=== PATIENT | male | born 1930 ===

== ENCOUNTER 2018-01-29 14:07 | Observation (INO) ==
[2018-01-29] MEDS ORDERED: Naloxone 0.4 MG/ML INJ IVP PRN (18:48)
--- NOTE | 2018-01-29 19:03 | Internal Med History&Physical ---
Date of Encounter: 01/29/18 Time of Encounter: 19:30 Internal Medicine - H&P: HPI Chief complaint: Generalized weakness Admitted From: Home Plans for Post Hospital Care: Home History of present illness: Mr. Loja is a 88 year old male with multiple comorbidities who presented to [facility] with generalized weakness and abdominal pain. Patient is being seen by oncology and he had liver biopsy done 3 days ago, and is been hurting the biopsy site since then. Patient is getting very weak and he is not able to get up. According to his he was admitted to confused this morning. Initial workup CT head was negative. Patient has been having nausea and vomiting for the last couple days. He denied any chest pain no abdominal pain no changes in bowel movement. No headache no blurry vision or double vision. Patient being followed up by oncology for possible metastasis of unknown primary. Past Med Surg Social Fam HX - Past Medical History Medical history: non-contributory, GERD, hyperlipidemia, hypertension Additional medical history: gout Psychiatric history: no psych history - Past Surgical History Surgical History: non-contributory - Social History Smoking Status: Never smoker Smokeless Tobacco Status: No Alcohol use: none Drug use: none - Additional Family History Additional family history: Family history reviewed. No history of cancer in the family Internal Medicine - H&P: Meds Allopurinol [Zyloprim 100 MG] 100 mg PO DAILY 01/12/18 [History] Difluprednate [Durezol] 5 ml OP DAILY 01/12/18 [History] Ergocalciferol (VITAMIN D2) [Vitamin D] 400 unit PO DAILY 01/12/18 [History] Finasteride [Proscar] 5 mg PO DAILY 01/12/18 [History] Lisinopril [Zestril] 20 mg PO DAILY 01/12/18 [History] Metoclopramide [Reglan] 5 mg PO TID 01/12/18 [History] Pantoprazole Sodium [Protonix] 40 mg PO BID 01/12/18 [History] Pravastatin Sodium [Pravachol] 80 mg PO DAILY 01/12/18 [History] Spironolactone [Aldactone] 25 mg PO DAILY 01/12/18 [History] Tamsulosin HCl [Flomax] 0.4 mg PO DAILY 01/12/18 [History] Vitamin B Complex [B Complex] 1 each PO DAILY 01/12/18 [History] hydroCHLOROthiazide [Hydrochlorothiazide] 50 mg PO DAILY 01/12/18 [History] 3 Allergy/AdvReac Type Severity Reaction Status Date / Time No Known Allergies Allergy Verified 01/12/18 11:11 All Systems PM: A 10-system review of systems was performed and is negative for pertinent findings except as documented above in the HPI. - Constitutional Vitals: Temp Pulse Resp BP Pulse Ox 99.2 F 72 16 154/80 99 01/29/18 18:20 01/29/18 18:20 01/29/18 18:20 01/29/18 18:20 01/29/18 18:20 - Head Head exam: Present: atraumatic, normocephalic - Eye Eye exam: Present: PERRL, conjuntiva pink, sclera anicteric Pupils: Present: PERRL - Neck Neck exam general surgery: Present: supple, trachea midline. Absent: lymphadenopathy - Respiratory Respiratory exam: Present: CTAB. Absent: accessory muscle use, rales, rhonchi, wheezes - Cardiovascular Cardiovascular exam: Present: RRR, +S1, +S2. Absent: diastolic murmur, gallop, rubs, systolic murmur - GI/Abdominal Additional comments: Mild right sided tenderness - Extremities Exam Extremities exam: Present: warm, radial pulses palpable and symmetrical. Absent : calf tenderness, cyanotic, pedal edema - Neurological Exam Neurological exam: Present: CN II-XII intact, oriented X3, no focal deficits. Absent: pronater drift, facial droop, speech deficit - Assessment and plan (1) Acute kidney injury Current Visit: Yes Status: Acute Assessment and plan: Start IV hydration with normal saline Hold lisinopril and diuretics. Avoid nephrotoxic agents Monitor kidney function tests Replace electrolytes as needed Patient had a CT abdomen done in outside facility. Showed liver lesion that was biopsied 3 days ago (2) Dehydration Current Visit: Yes Status: Acute Assessment and plan: Plan as above (3) Liver metastases Current Visit: Yes Status: Acute Assessment and plan: Status post liver biopsy a few days ago Oncology will be consulted to be called in the morning. Family requested to know the results of the biopsy. (4) Confusion Current Visit: Yes Status: Acute Assessment and plan: Currently patient is awake alert oriented 3 Reported very short period of confusion by his earlier this morning. Patient denied being confused CT head negative Frequent neuro checks (5) Lactic acidosis Current Visit: Yes Status: Acute Assessment and plan: Resolved Continue IV hydration No signs of infection Blood cultures already sent (6) Generalized weakness Current Visit: Yes Status: Acute Assessment and plan: Physical therapy and occupational therapy (7) On esomeprazole prophylaxis Current Visit: Yes Status: Acute (8) DVT prophylaxis Current Visit: Yes Status: Acute Assessment and plan: with Lovenox SQ - Time Spent With Patient Total time spent is greater than 50% in coordination of care (as documented) at patient's floor/unit and/or counseling patient:
[2018-01-29 19:34] LABS: Hemoglobin 7.4 g/dL (12.9-16.9); Mean Corpuscular HGB Conc 33.6 g/dL (31.6-35.5); Mean Corpuscular Hemoglobin 33.8 pg (28.0-33.3); Mean Corpuscular Volume 100.5 fL (83.0-100.0); Mean Platelet Volume 10.5 fL (9.4-12.4); Monocytes # 0.9 K/mcL (0.0-1.3); Platelet Count 107 K/mcL (140-400); Red Blood Count 2.19 M/mcL (4.19-5.50); Red Cell Distribution Width 16.2 % (11.5-14.5)
[2018-01-29 19:44] LABS: Albumin 3.4 g/dL (3.5-5.7); Albumin/Globulin Ratio 1.1 (1.1-2.2); Bilirubin,Total 2.9 mg/dL (0.3-1.0); Calcium 9.6 mg/dL (8.6-10.3); Magnesium 1.7 mg/dL (1.6-2.6); Phosphorous 3.4 mg/dL (2.7-4.5); Potassium 4.3 mEq/L (3.5-5.1); Total Protein 6.4 g/dL (6.4-8.9)
[2018-01-29] MEDS: 0.9 % Sodium Chloride 1,000 ML IVC SCH (19:51)
[2018-01-29 20:31] LABS: Lymphocytes # 1.1 K/mcL (0.6-4.6); Neutrophils # 7.1 K/mcL (1.6-8.9)
[2018-01-29 20:32] LABS: Platelet Estimate Slight Decrease (Normal)
[2018-01-30 04:29] LABS: Eosinophils # 0.2 K/mcL (0.0-0.6); Hematocrit 20.9 % (37.5-50.1); Hemoglobin 6.9 g/dL (12.9-16.9); Mean Corpuscular Hemoglobin 32.2 pg (28.0-33.3); Mean Corpuscular Volume 97.7 fL (83.0-100.0); Mean Platelet Volume 10.5 fL (9.4-12.4); Platelet Count 109 K/mcL (140-400); Red Blood Count 2.14 M/mcL (4.19-5.50)
[2018-01-30 04:58] LABS: Lymphocytes # 1.5 K/mcL (0.6-4.6); Monocytes # 0.4 K/mcL (0.0-1.3); Neutrophils # 7.3 K/mcL (1.6-8.9)
[2018-01-30 04:59] LABS: Hypochromasia Present (Not Present); Platelet Estimate Slight Decrease (Normal)
[2018-01-30] MEDS: 0.9 % Sodium Chloride 1,000 ML IVC SCH (05:32)
[2018-01-30 05:50] LABS: Albumin 3.4 g/dL (3.5-5.7); Albumin/Globulin Ratio 1.2 (1.1-2.2); Bilirubin,Total 3.2 mg/dL (0.3-1.0); Calcium 9.5 mg/dL (8.6-10.3); Globulin 2.9 g/dL (2.4-3.5); Magnesium 1.6 mg/dL (1.6-2.6); Phosphorous 3.4 mg/dL (2.7-4.5); Potassium 4.2 mEq/L (3.5-5.1); Total Protein 6.3 g/dL (6.4-8.9)
[2018-01-30] MEDS ORDERED: *HR* Enoxaparin 30 MG/0.3 ML SYRINGE SQ SCH (06:00)
[2018-01-30] MEDS: Finasteride 5 MG TABLET PO SCH (09:05)
[2018-01-30] MEDS: Vitamin B Complex/Vit C/Vit E 1 EACH TABLET PO SCH (09:05)
[2018-01-30] MEDS: DIFLUPREDNATE OP SCH (09:05)
[2018-01-30] MEDS: Cholecalciferol (D-3) 1,000 UNIT TABLET PO SCH (09:05)
[2018-01-30] MEDS ORDERED: 0.9 % Sodium Chloride 250 ML ONE ×2 (11:15→14:43)
--- NOTE | 2018-01-30 11:35 | Internal Med Progress Note ---
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 Baseline creatinine 1.7. Presented creatinine 2.59. Kidney function slowly improving with IV fluid hydration. Continue the same. Obtain renal ultrasound. Avoid Nephrotoxins. Consider renal evaluation if not improving. (5) Confusion Current Visit: Yes Status: Resolved Assessment and plan: resolved Patient is AAOX3 on evaluation, able to participate in conversation, head CT unremarkable (6) DVT prophylaxis Current Visit: Yes Status: Acute Assessment and plan: SCds-acute anemia of unknown source (7) Generalized weakness Current Visit: Yes Status: Acute Assessment and plan: PTOT eval when stable (8) Lactic acidosis Current Visit: Yes Status: Acute Assessment and plan: Possibly due to decreased clearance by the liver due to liver disease Continue to monitor Lactate 1.7 7/2 (9) Liver metastases Current Visit: Yes Status: Acute Assessment and plan: Oncology eval requested-call made (10) On esomeprazole prophylaxis Current Visit: Yes Status: Acute Assessment and plan: continue same - Time Spent With Patient Total time spent is greater than 50% in coordination of care (as documented) at patient's floor/unit and/or counseling patient: - Subjective Interval history: Patient is seen and examined with his family members at the bedside. The patient is awake, alert and oriented, he denies new complaints, still complains of generalized weakness and right upper quadrant pain. He denies nausea, denies vomiting, denies hematemesis, no hematemesis E, stool is said to be brown. No hematuria. - Constitutional Vitals: Temp Pulse Resp BP Pulse Ox 98.6 F 60 16 148/88 97 01/30/18 07:59 01/30/18 07:59 01/30/18 07:59 01/30/18 07:59 01/30/18 07:59 General appearance: Present: A&O X 3, no acute distress - Head Head exam: Present: atraumatic - Eye Additional comments: pale conjunctiva - ENT ENT exam: Present: mucous membranes dry - Neck Neck exam general surgery: Present: normal inspection - Respiratory Respiratory exam: Present: CTAB - Cardiovascular Cardiovascular exam: Present: RRR, +S1, +S2 - GI/Abdominal GI/Abdominal exam: Present: normal bowel sounds, soft, no peritoneal signs. Absent: tenderness - Extremities Exam Extremities exam: Present: warm, radial pulses palpable and symmetrical. Absent : calf tenderness, cyanotic, pedal edema - Neurological Exam Neurological exam: Present: alert, CN II-XII intact, oriented X3, no focal deficits. Absent: pronater drift, facial droop, speech deficit - Skin Skin exam: Present: dry, intact Internal Medicine: Result - Labs CBC & Chem 7: 01/30/18 03:44 01/30/18 03:44 Labs: Short CBC 01/29/18 01/29/18 01/29/18 Range/Units 19:14 19:14 19:14 WBC 9.1 (4.3-11.1) K/mcL RBC 2.19 L (4.19-5.50) M/mcL Hgb 7.4 L (12.9-16.9) g/dL Hct 22.0 L (37.5-50.1) % MCV 100.5 H (83.0-100.0) fL MCH 33.8 H (28.0-33.3) pg MCHC 33.6 (31.6-35.5) g/dL RDW 16.2 H (11.5-14.5) % Plt Count 107 L (140-400) K/mcL MPV 10.5 (9.4-12.4) fL Seg Neutrophils % 78.0 % Lymphocytes % 12.0 % Monocytes % 10.0 % Eosinophils % % Neutrophils # 7.1 (1.6-8.9) K/mcL Lymphocytes # 1.1 (0.6-4.6) K/mcL Monocytes # 0.9 (0.0-1.3) K/mcL Eosinophils # (0.0-0.6) K/mcL Platelet Estimate Slight Decrease L (Normal) Hypochromasia (Not Present) Sodium 135 L (136-145) mEq/L Potassium 4.3 (3.5-5.1) mEq/L Chloride 103 (98-107) mEq/L Carbon Dioxide 25 (23-29) mEq/L BUN 44 H (8-23) mg/dL Creatinine 2.59 H (0.70-1.30) mg/dL Est GFR ( Amer) 29 L (> 60) Est GFR (Non-Af Amer) 24 L (> 60) BUN/Creatinine Ratio 17 (6-26) Glucose 143 H (70-105) mg/dL Calculated Osmolality 294 (280-300) Lactic Acid 1.7 (0.5-2.2) mmol/L Calcium 9.6 (8.6-10.3) mg/dL Phosphorus 3.4 (2.7-4.5) mg/dL Magnesium 1.7 (1.6-2.6) mg/dL Total Bilirubin 2.9 H (0.3-1.0) mg/dL AST 71 H (13-39) Units/L ALT 47 (7-52) Units/L Alkaline Phosphatase 277 H (34-104) Units/L Serum Total Protein 6.4 (6.4-8.9) g/dL Albumin 3.4 L (3.5-5.7) g/dL Globulin 3.0 (2.4-3.5) g/dL Albumin/Globulin Ratio 1.1 (1.1-2.2) 01/30/18 01/30/18 Range/Units 03:44 03:44 WBC 9.4 (4.3-11.1) K/mcL RBC 2.14 L (4.19-5.50) M/mcL Hgb 6.9 L (12.9-16.9) g/dL Hct 20.9 L (37.5-50.1) % MCV 97.7 (83.0-100.0) fL MCH 32.2 (28.0-33.3) pg MCHC 33.0 (31.6-35.5) g/dL RDW 16.0 H (11.5-14.5) % Plt Count 109 L (140-400) K/mcL MPV 10.5 (9.4-12.4) fL Seg Neutrophils % 78.0 % Lymphocytes % 16.0 % Monocytes % 4.0 % Eosinophils % 2.0 % Neutrophils # 7.3 (1.6-8.9) K/mcL Lymphocytes # 1.5 (0.6-4.6) K/mcL Monocytes # 0.4 (0.0-1.3) K/mcL Eosinophils # 0.2 (0.0-0.6) K/mcL Platelet Estimate Slight Decrease L (Normal) Hypochromasia Present A (Not Present) Sodium 137 (136-145) mEq/L Potassium 4.2 (3.5-5.1) mEq/L Chloride 105 (98-107) mEq/L Carbon Dioxide 22 L (23-29) mEq/L BUN 40 H (8-23) mg/dL Creatinine 2.35 H (0.70-1.30) mg/dL Est GFR ( Amer) 32 L (> 60) Est GFR (Non-Af Amer) 26 L (> 60) BUN/Creatinine Ratio 17 (6-26) Glucose 101 (70-105) mg/dL Calculated Osmolality 294 (280-300) Lactic Acid (0.5-2.2) mmol/L Calcium 9.5 (8.6-10.3) mg/dL Phosphorus 3.4 (2.7-4.5) mg/dL Magnesium 1.6 (1.6-2.6) mg/dL Total Bilirubin 3.2 H (0.3-1.0) mg/dL AST 69 H (13-39) Units/L ALT 46 (7-52) Units/L Alkaline Phosphatase 248 H (34-104) Units/L Serum Total Protein 6.3 L (6.4-8.9) g/dL Albumin 3.4 L (3.5-5.7) g/dL Globulin 2.9 (2.4-3.5) g/dL Albumin/Globulin Ratio 1.2 (1.1-2.2) BMP 01/29/18 01/30/18 19:14 03:44 Sodium 135 L 137 Potassium 4.3 4.2 Chloride 103 105 Carbon Dioxide 25 22 L BUN 44 H 40 H Creatinine 2.59 H 2.35 H Glucose 143 H 101 Calcium 9.6 9.5 Liver Function 01/29/18 01/30/18 Range/Units 19:14 03:44 Total Bilirubin 2.9 H 3.2 H (0.3-1.0) mg/dL AST 71 H 69 H (13-39) Units/L ALT 47 46 (7-52) Units/L Alkaline Phosphatase 277 H 248 H (34-104) Units/L Albumin 3.4 L 3.4 L (3.5-5.7) g/dL Consult Discharge Plan - Plan Referrals: Rico Reno MD [Family Provider] -
--- NOTE | 2018-01-30 13:58 | Palliative - Consult Note ---
<Deanna Rogers - Last Filed: 01/30/18 17:10> Date of Encounter: 01/30/18 Time of Encounter: 13:56 - Assessment and Plan (1) Goals of care, counseling/discussion Current Visit: Yes Status: Acute Assessment and plan: Presented to outside hospital for c/o generalized weakness and abdominal pain Recent results of liver biopsy (01/23/18) show malignant cells PET scan (01/25/18) results show: - Metabolically active mass in tail of pancreas enlarged since prior CT imaging , concerning for primary pancreatic cancer - Progression of liver metastases since prior CT scan - Metabolically active lymph nodes of rishi hepatis, likely metastatic - Right 4th rib and T12 lesions, likely represent early skeletal metastatses Plan: 1. At this time, pt and his family are waiting to speak with oncology and learn about possible treatment options 2. Regarding CODE STATUS, pt is considering his options and at this time remains FULL CODE 3. Family will bring medical POA paperwork to hospital tomorrow so a copy can be scanned into pt's medical record 4. Will visit pt and family tomorrow to discuss goals of care and CODE STATUS 5. 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 Current Visit: Yes Status: Acute Assessment and plan: Recent results of liver biopsy (01/23/18) show malignant cells PET scan (01/25/18) results show: - Metabolically active mass in tail of pancreas enlarged since prior CT imaging , concerning for primary pancreatic cancer - Progression of liver metastases since prior CT scan (3) Nausea Current Visit: Yes Status: Acute Assessment and plan: Controlled at this time (4) Bone metastases Current Visit: Yes Status: Acute Assessment and plan: Right 4th rib and T12 lesions, likely patient services representative of early skeletal metastases, noted on PET scan. Palliative-CN HPI - Data of Consult Patient: new to practice Consult date: 01/30/18 Requesting Physician: Que Chapa MD Primary Care Provider: PCP NONE Family Provider: Rico Reno MD - Consult Narrative Palliative Care/Comfort Measures: Palliative care Reason for consult: Goals of care History of present illness: Mr. Loja is a 88 year-old male who presented to [facility] with generalized weakness and abdominal pain. He is being seen by oncology and had a liver biopsy several days ago that was positive for malignant cells. PET scan done 01/25/18 further suggests possibility of metastasis of unknown primary, suspected to be pancreatic. Since that time, the patient has become very weak and experiencing nausea and vomiting. On admission, the patient's fiance reported he had been confused that morning--his head CT was reportedly negative. He was admitted to the hospitalist service for further evaluation and management. Palliative care consulted to discuss goals of care and code status. CC: Que Chapa MD Past Med Surg Social Fam HX - Past Medical History Medical history: non-contributory, GERD, hyperlipidemia, hypertension Additional medical history: gout Psychiatric history: no psych history - Past Surgical History Surgical History: non-contributory - Social History Smoking Status: Never smoker Smokeless Tobacco Status: No Alcohol use: none Drug use: none - Family History Mother Living Status: Age at : 69 Cause of : Stroke Hx Family Cardiac Disorders: Yes Hx Family Respiratory Disorders: No Hx Family Cancer: No Hx Family GI Disorders: No Hx Family Genitourinary Disorders: No Hx Family Endocrine Disorder: No Hx Family Musculoskeletal Disorders: No Hx Family Neuromuscular Disorders: No Hx Family Neurologic Disorders: Yes Hx Family HEENT Disorders: No Hx Family Autoimmune Disorders: No Hx Family Reproductive Disorders: No Hx Family Psychosocial Disorders: No Hx Family Medical Disorders: No Father Living Status: Age at : 70 Cause of : unknown Hx Family Cardiac Disorders: Yes Hx Family Respiratory Disorders: No Hx Family Cancer: No Hx Family GI Disorders: No Hx Family Genitourinary Disorders: No Hx Family Endocrine Disorder: No Hx Family Musculoskeletal Disorders: No Hx Family Neuromuscular Disorders: No Hx Family Neurologic Disorders: No Hx Family HEENT Disorders: No Hx Family Autoimmune Disorders: No Hx Family Reproductive Disorders: No Hx Family Psychosocial Disorders: No Hx Family Medical Disorders: No Medications and Allergies Allopurinol [Zyloprim 100 MG] 100 mg PO DAILY 01/12/18 [History] Difluprednate [Durezol] 5 ml OP DAILY 01/12/18 [History] Ergocalciferol (VITAMIN D2) [Vitamin D] 400 unit PO DAILY 01/12/18 [History] Finasteride [Proscar] 5 mg PO DAILY 01/12/18 [History] Lisinopril [Zestril] 20 mg PO DAILY 01/12/18 [History] Metoclopramide [Reglan] 5 mg PO TID 01/12/18 [History] Pantoprazole Sodium [Protonix] 40 mg PO BID 01/12/18 [History] Pravastatin Sodium [Pravachol] 80 mg PO DAILY 01/12/18 [History] Spironolactone [Aldactone] 25 mg PO DAILY 01/12/18 [History] Tamsulosin HCl [Flomax] 0.4 mg PO DAILY 01/12/18 [History] Vitamin B Complex [B Complex] 1 each PO DAILY 01/12/18 [History] hydroCHLOROthiazide [Hydrochlorothiazide] 50 mg PO DAILY 01/12/18 [History] 3 Allergy/AdvReac Type Severity Reaction Status Date / Time No Known Allergies Allergy Verified 01/12/18 11:11 - Gastrointestinal Gastrointestinal: abdominal pain (slight), constipation, no diarrhea, no nausea , no vomiting - Musculoskeletal Additional comments: no lower extremity edema Palliative Care-Exam - Constitutional Vitals: Temp Pulse Resp BP Pulse Ox 98.4 F 68 14 156/85 97 01/30/18 11:56 01/30/18 11:56 01/30/18 11:56 01/30/18 11:56 01/30/18 11:56 General appearance: Present: average body habitus, cooperative, no acute distress - Head Head Exam: Present: atraumatic, normal inspection, normocephalic - Respiratory Respiratory exam: Present: CTAB. Absent: rales, respiratory distress, wheezes - Cardiovascular Cardiovascular exam: Present: RRR, +S1, +S2 - GI/Abdominal Exam GI/Abdominal exam: Present: normal bowel sounds, soft, tenderness (central abdomen). Absent: rebound, rigid - Extremities Exam Extremities exam: Present: normal inspection. Absent: pedal edema, tenderness - Neurological Exam Neurological exam: Present: alert, oriented X3. Absent: no focal deficits, facial droop, speech deficit - Psychiatric Psychiatric exam: Present: normal affect, normal mood - Skin Skin exam: Present: dry, intact, warm Internal Medicine - CN: Reslt - Labs CBC & Chem 7: 01/30/18 03:44 01/30/18 03:44 Labs: Short CBC 01/29/18 01/30/18 Range/Units 19:14 03:44 WBC 9.1 9.4 (4.3-11.1) K/mcL Hgb 7.4 L 6.9 L (12.9-16.9) g/dL Hct 22.0 L 20.9 L (37.5-50.1) % Plt Count 107 L 109 L (140-400) K/mcL Neutrophils # 7.1 7.3 (1.6-8.9) K/mcL BMP 01/29/18 01/30/18 19:14 03:44 Sodium 135 L 137 Potassium 4.3 4.2 Chloride 103 105 Carbon Dioxide 25 22 L BUN 44 H 40 H Creatinine 2.59 H 2.35 H Glucose 143 H 101 Calcium 9.6 9.5 Liver Function 01/29/18 01/30/18 Range/Units 19:14 03:44 Total Bilirubin 2.9 H 3.2 H (0.3-1.0) mg/dL AST 71 H 69 H (13-39) Units/L ALT 47 46 (7-52) Units/L Alkaline Phosphatase 277 H 248 H (34-104) Units/L Albumin 3.4 L 3.4 L (3.5-5.7) g/dL Consult Discharge Plan - Plan Referrals: Rico Reno MD [Family Provider] - Palliative Quality Palliative Quality: Screen for Code Status: Yes, Screen for Goals of Care: Yes, Screen for Pain: Yes, Screen for Nausea/Vomitting: Yes Code Status: 01/29/18 18:48 Resuscitation Status: Active [RES] Routine Comment: Resuscitation Status: Full Code <DanielGio Scott - Last Filed: 01/30/18 17:32> Date of Encounter: 01/30/18 Palliative-CN HPI - Data of Consult Requesting Physician: Que Chapa MD Primary Care Provider: PCP NONE Family Provider: Rico Reno MD - Consult Narrative History of present illness: Mr. Loja is a 88 year old male CC: Que Chapa MD Palliative Care-Exam - Constitutional Vitals: Temp Pulse Resp BP Pulse Ox 98.2 F 69 14 159/83 97 01/30/18 15:48 01/30/18 15:48 01/30/18 15:48 01/30/18 15:48 01/30/18 15:48 Internal Medicine - CN: Reslt - Labs CBC & Chem 7: 01/30/18 03:44 01/30/18 03:44 Labs: Short CBC 07/01/18 07/02/18 Range/Units 19:14 03:44 WBC 9.1 9.4 (4.3-11.1) K/mcL Hgb 7.4 L 6.9 L (12.9-16.9) g/dL Hct 22.0 L 20.9 L (37.5-50.1) % Plt Count 107 L 109 L (140-400) K/mcL Neutrophils # 7.1 7.3 (1.6-8.9) K/mcL BMP 01/29/18 01/30/18 19:14 03:44 Sodium 135 L 137 Potassium 4.3 4.2 Chloride 103 105 Carbon Dioxide 25 22 L BUN 44 H 40 H Creatinine 2.59 H 2.35 H Glucose 143 H 101 Calcium 9.6 9.5 Liver Function 01/29/18 01/30/18 Range/Units 19:14 03:44 Total Bilirubin 2.9 H 3.2 H (0.3-1.0) mg/dL AST 71 H 69 H (13-39) Units/L ALT 47 46 (7-52) Units/L Alkaline Phosphatase 277 H 248 H (34-104) Units/L Albumin 3.4 L 3.4 L (3.5-5.7) g/dL - Attending Attestation I examined this patient and my medical decision-making was reviewed with the Resident Physician. I agree with the documented findings, disposition and treatment plan as described except to the extent set forth below. Palliative Quality Code Status: 01/29/18 18:48 Resuscitation Status: Active [RES] Routine Comment: Resuscitation Status: Full Code
--- NOTE | 2018-01-30 17:00 | Event Note ---
Date of Encounter: 01/30/18 Time of Encounter: 17:00 Full consult note to follow. Imaging and bx findings consistent with metastatic malignancy, likely pancreatic primary. Biopsy and PET scan findings were reviewed with patient and family. Hospice palliative care was discussed with patient and patient and family are agreeable. His case was also reviewed last wk in MDT conference. Palliative care has evaluated patient. Family awaits to get their input on in- patient vs outpatient/home hospice services.
[2018-01-30 20:38] LABS: Eosinophils # 0.3 K/mcL (0.0-0.6); Eosinophils % 1.9 %; Lymphocytes % 7.5 %; Mean Corpuscular HGB Conc 33.7 g/dL (31.6-35.5); Mean Corpuscular Hemoglobin 32.4 pg (28.0-33.3); Mean Corpuscular Volume 96.2 fL (83.0-100.0); Mean Platelet Volume 10.2 fL (9.4-12.4); Monocytes # 1.2 K/mcL (0.0-1.3); Monocytes % 8.8 %; Neutrophils # 10.8 K/mcL (1.6-8.9); Platelet Count 126 K/mcL (140-400); Red Blood Count 3.12 M/mcL (4.19-5.50); Red Cell Distribution Width 17.2 % (11.5-14.5); Segmented Neutrophils % 80.8 %
[2018-01-30 20:46] LABS: INR 1.3; Prothrombin Time 14.4 Seconds (9.4-12.1)
[2018-01-30 21:09] LABS: Hemoglobin 10.1 g/dL (12.9-16.9)
[2018-01-30 21:12] LABS: Reactive Lymphocytes Present (Not Present); Toxic Granulation Present (Not Present)
[2018-01-31] MEDS: 0.9 % Sodium Chloride 1,000 ML IVC SCH ×2 (03:02→17:19)
[2018-01-31 05:22] LABS: Hematocrit 25.1 % (37.5-50.1); Mean Corpuscular HGB Conc 33.9 g/dL (31.6-35.5); Mean Corpuscular Hemoglobin 31.8 pg (28.0-33.3); Mean Platelet Volume 10.4 fL (9.4-12.4); Platelet Count 113 K/mcL (140-400); Red Blood Count 2.67 M/mcL (4.19-5.50); Red Cell Distribution Width 17.4 % (11.5-14.5)
[2018-01-31 05:28] LABS: INR 1.4; Prothrombin Time 15.6 Seconds (9.4-12.1)
[2018-01-31 05:40] LABS: Albumin 3.4 g/dL (3.5-5.7); Albumin/Globulin Ratio 1.3 (1.1-2.2); Bilirubin,Direct 2.1 mg/dL (0.0-0.2); Bilirubin,Indirect 2.2 mg/dL (0.0-1.2); Bilirubin,Total 4.3 mg/dL (0.3-1.0); Globulin 2.7 g/dL (2.4-3.5); Total Protein 6.1 g/dL (6.4-8.9)
[2018-01-31 05:41] LABS: Calcium 9.5 mg/dL (8.6-10.3)
[2018-01-31 05:46] LABS: Hemoglobin 8.5 g/dL (12.9-16.9)
[2018-01-31 05:57] LABS: Eosinophils # 0.1 K/mcL (0.0-0.6); Lymphocytes # 0.7 K/mcL (0.6-4.6); Monocytes # 0.6 K/mcL (0.0-1.3); Neutrophils # 10.1 K/mcL (1.6-8.9); Platelet Estimate Slight Decrease (Normal)
[2018-01-31 05:58] LABS: Hypochromasia Present (Not Present); Toxic Granulation Present (Not Present)
[2018-01-31 05:59] LABS: Macrocytosis Present (Not Present)
[2018-01-31] MEDS: Finasteride 5 MG TABLET PO SCH (07:56)
[2018-01-31] MEDS: Vitamin B Complex/Vit C/Vit E 1 EACH TABLET PO SCH (07:56)
[2018-01-31] MEDS: Cholecalciferol (D-3) 1,000 UNIT TABLET PO SCH (07:56)
[2018-01-31] MEDS: DIFLUPREDNATE OP SCH (07:57)
--- NOTE | 2018-01-31 10:27 | Palliative Progress Note ---
<Deanna Rogers - Last Filed: 01/31/18 10:25> Date of Encounter: 01/31/18 Time of Encounter: 09:00 - Assessment and plan (1) Goals of care, counseling/discussion Current Visit: Yes Status: Acute Assessment and plan: Liver biopsy (01/23/18) and PET scan (01/25/18) results as discussed in consult note Per Dr. Reed's discussion with patient and family yesterday, chemo and/or radiation will not provide curative or palliative benefits Regarding CODE STATUS, patient remains FULL CODE Plan: 1. Family meeting planned for 13:00 today to discuss CODE STATUS and options for hospice care 2. Pain control with oxycodone IR made available PRN 3. Awaiting medical POA paperwork (2) Pancreatic cancer metastasized to liver Current Visit: Yes Status: Acute Assessment and plan: Liver biopsy (01/23/18) and PET scan (01/25/18) results as discussed in consult note (3) Nausea Current Visit: Yes Status: Acute Assessment and plan: Controlled, denies any nausea at this time (4) Bone metastases Current Visit: Yes Status: Acute Assessment and plan: Right 4th rib and T12 lesions, likely inside outside sales representative of early skeletal metastases, noted on PET scan. - Time Spent With Patient Total time spent is greater than 50% in coordination of care (as documented) at patient's floor/unit and/or counseling patient: - Subjective Interval history: Patient seen and examined this morning at bedside, he is resting in bed and his fiance is present in the room. The patient denies fevers, chills, chest pain, shortness of breath, and nausea. He states his abdominal pain is the same as it was yesterday. Admits to poor appetite, but states he was able to eat some breakfast this morning. Yesterday, he was visited by his oncologist, Dr. Reed who informed the patient and his family that radiation and/or chemotherapy would not be beneficial in curative or palliative terms as would most likely cause the patient more pain. - Constitutional Vitals: Abnormal lab results WBC 11.5 K/mcL (4.3-11.1) H 01/31/18 04:23 RBC 2.67 M/mcL (4.19-5.50) L 01/31/18 04:23 Hgb 8.5 g/dL (12.9-16.9) L D 01/31/18 04:23 Hct 25.1 % (37.5-50.1) L 01/31/18 04:23 RDW 17.4 % (11.5-14.5) H 01/31/18 04:23 Plt Count 113 K/mcL (140-400) L 01/31/18 04:23 Neutrophils # 10.1 K/mcL (1.6-8.9) H 01/31/18 04:23 Reactive Lymphocytes Present (Not Present) A 01/30/18 20:15 Toxic Granulation Present (Not Present) A 01/31/18 04:23 Platelet Estimate Slight Decrease (Normal) L 01/31/18 04:23 Hypochromasia Present (Not Present) A 01/31/18 04:23 Macrocytosis Present (Not Present) A 01/31/18 04:23 PT 15.6 Seconds (9.4-12.1) H 01/31/18 04:23 Sodium 133 mEq/L (136-145) L 01/31/18 04:23 Carbon Dioxide 21 mEq/L (23-29) L 01/31/18 04:23 BUN 34 mg/dL (8-23) H 01/31/18 04:23 Creatinine 1.95 mg/dL (0.70-1.30) H 01/31/18 04:23 Est GFR ( Amer) 40 (> 60) L 01/31/18 04:23 Est GFR (Non-Af Amer) 33 (> 60) L 01/31/18 04:23 Glucose 119 mg/dL (70-105) H 01/31/18 04:23 Total Bilirubin 4.3 mg/dL (0.3-1.0) H 01/31/18 04:23 Direct Bilirubin 2.1 mg/dL (0.0-0.2) H 01/31/18 04:23 Indirect Bilirubin 2.2 mg/dL (0.0-1.2) H 01/31/18 04:23 AST 67 Units/L (13-39) H 01/31/18 04:23 Alkaline Phosphatase 282 Units/L (34-104) H 01/31/18 04:23 Serum Total Protein 6.1 g/dL (6.4-8.9) L 01/31/18 04:23 Albumin 3.4 g/dL (3.5-5.7) L 01/31/18 04:23 General appearance: Present: average body habitus, no acute distress. Absent: febrile - Head Head exam: Present: atraumatic, normal inspection, normocephalic - Neck Neck exam: Present: full ROM - Respiratory Respiratory exam: Present: CTAB. Absent: respiratory distress, rhonchi, wheezes - Cardiovascular Cardiovascular exam: Present: RRR, +S1, +S2 - GI/Abdominal GI/Abdominal exam: Present: normal bowel sounds, soft, tenderness. Absent: distended, guarding - Extremities Exam Additional comments: Moves all extremities equally and spontaneously - Neurological Exam Neurological exam: Absent: facial droop, speech deficit Additional comments: Answers questions appropriately, moves all extremities spontaneously - Psychiatric Psychiatric exam: Absent: anxious - Skin Skin exam: Present: dry, intact, warm Palliative Quality Palliative Quality: Screen for Code Status: Yes, Screen for Goals of Care: Yes, Screen for Pain: Yes, Screen for Nausea/Vomitting: Yes Code Status: 01/29/18 18:48 Resuscitation Status: Active [RES] Routine Comment: Resuscitation Status: Full Code - Labs CBC & Chem 7: 01/31/18 04:23 01/31/18 04:23 Labs: Laboratory Results - last 24 hr 01/30/18 01/30/18 01/30/18 08:50 20:15 20:15 WBC 13.4 H RBC 3.12 L Hgb 10.1 L D Hct 30.0 L MCV 96.2 MCH 32.4 MCHC 33.7 RDW 17.2 H Plt Count 126 L MPV 10.2 Immature Gran % 1.0 Seg Neutrophils % 80.8 Band Neutrophils % Lymphocytes % 7.5 Monocytes % 8.8 Eosinophils % 1.9 Basophils % 0.0 Neutrophils # 10.8 H Lymphocytes # 1.0 Monocytes # 1.2 Eosinophils # 0.3 Basophils # 0.0 Reactive Lymphocytes Present A Toxic Granulation Present A Platelet Estimate Hypochromasia Macrocytosis PT 14.4 H INR 1.3 Sodium Potassium Chloride Carbon Dioxide BUN Creatinine Est GFR ( Amer) Est GFR (Non-Af Amer) BUN/Creatinine Ratio Glucose Calculated Osmolality Calcium Total Bilirubin Direct Bilirubin Indirect Bilirubin AST ALT Alkaline Phosphatase Serum Total Protein Albumin Globulin Albumin/Globulin Ratio Blood Type B POSITIVE Antibody Screen POSITIVE Antibody Identification Inconclusive Crossmatch See Detail MTS Gel Crossmatch See Detail 01/31/18 01/31/18 01/31/18 04:23 04:23 04:23 WBC 11.5 H RBC 2.67 L Hgb 8.5 L D Hct 25.1 L MCV 94.0 MCH 31.8 MCHC 33.9 RDW 17.4 H Plt Count 113 L MPV 10.4 Immature Gran % Seg Neutrophils % 84.0 Band Neutrophils % 4.0 Lymphocytes % 6.0 Monocytes % 5.0 Eosinophils % 1.0 Basophils % Neutrophils # 10.1 H Lymphocytes # 0.7 Monocytes # 0.6 Eosinophils # 0.1 Basophils # Reactive Lymphocytes Toxic Granulation Present A Platelet Estimate Slight Decrease L Hypochromasia Present A Macrocytosis Present A PT INR Sodium 133 L Potassium 4.0 Chloride 103 Carbon Dioxide 21 L BUN 34 H Creatinine 1.95 H Est GFR ( Amer) 40 L Est GFR (Non-Af Amer) 33 L BUN/Creatinine Ratio 17 Glucose 119 H Calculated Osmolality 285 Calcium 9.5 Total Bilirubin 4.3 H Direct Bilirubin 2.1 H Indirect Bilirubin 2.2 H AST 67 H ALT 44 Alkaline Phosphatase 282 H Serum Total Protein 6.1 L Albumin 3.4 L Globulin 2.7 Albumin/Globulin Ratio 1.3 Blood Type Antibody Screen Antibody Identification Crossmatch MTS Gel Crossmatch 01/31/18 04:23 WBC RBC Hgb Hct MCV MCH MCHC RDW Plt Count MPV Immature Gran % Seg Neutrophils % Band Neutrophils % Lymphocytes % Monocytes % Eosinophils % Basophils % Neutrophils # Lymphocytes # Monocytes # Eosinophils # Basophils # Reactive Lymphocytes Toxic Granulation Platelet Estimate Hypochromasia Macrocytosis PT 15.6 H INR 1.4 Sodium Potassium Chloride Carbon Dioxide BUN Creatinine Est GFR ( Amer) Est GFR (Non-Af Amer) BUN/Creatinine Ratio Glucose Calculated Osmolality Calcium Total Bilirubin Direct Bilirubin Indirect Bilirubin AST ALT Alkaline Phosphatase Serum Total Protein Albumin Globulin Albumin/Globulin Ratio Blood Type Antibody Screen Antibody Identification Crossmatch MTS Gel Crossmatch - Impressions Impressions Retroperitoneum Ultrasound 01/30/18 17:30 IMPRESSION: Simple bilateral renal cysts. Prostatomegaly. D/ / Kevin Sosa MD / Kevin Sosa MD Interpreting Provider: Kevin Sosa MD - ABG Interpretation ABG results: PT/INR, D-dimer PT 15.6 Seconds (9.4-12.1) H 01/31/18 04:23 Consult Discharge Plan - Plan Referrals: Rico Reno MD [Family Provider] - <AmandeepraniGio Scott - Last Filed: 01/31/18 11:16> Date of Encounter: 01/31/18 - Time Spent With Patient Total time spent is greater than 50% in coordination of care (as documented) at patient's floor/unit and/or counseling patient: - Constitutional Vitals: Abnormal lab results WBC 11.5 K/mcL (4.3-11.1) H 01/31/18 04:23 RBC 2.67 M/mcL (4.19-5.50) L 01/31/18 04:23 Hgb 8.5 g/dL (12.9-16.9) L D 01/31/18 04:23 Hct 25.1 % (37.5-50.1) L 01/31/18 04:23 RDW 17.4 % (11.5-14.5) H 01/31/18 04:23 Plt Count 113 K/mcL (140-400) L 01/31/18 04:23 Neutrophils # 10.1 K/mcL (1.6-8.9) H 01/31/18 04:23 Reactive Lymphocytes Present (Not Present) A 01/30/18 20:15 Toxic Granulation Present (Not Present) A 01/31/18 04:23 Platelet Estimate Slight Decrease (Normal) L 01/31/18 04:23 Hypochromasia Present (Not Present) A 01/31/18 04:23 Macrocytosis Present (Not Present) A 01/31/18 04:23 PT 15.6 Seconds (9.4-12.1) H 01/31/18 04:23 Sodium 133 mEq/L (136-145) L 01/31/18 04:23 Carbon Dioxide 21 mEq/L (23-29) L 01/31/18 04:23 BUN 34 mg/dL (8-23) H 01/31/18 04:23 Creatinine 1.95 mg/dL (0.70-1.30) H 01/31/18 04:23 Est GFR ( Amer) 40 (> 60) L 01/31/18 04:23 Est GFR (Non-Af Amer) 33 (> 60) L 01/31/18 04:23 Glucose 119 mg/dL (70-105) H 01/31/18 04:23 Total Bilirubin 4.3 mg/dL (0.3-1.0) H 01/31/18 04:23 Direct Bilirubin 2.1 mg/dL (0.0-0.2) H 01/31/18 04:23 Indirect Bilirubin 2.2 mg/dL (0.0-1.2) H 01/31/18 04:23 AST 67 Units/L (13-39) H 01/31/18 04:23 Alkaline Phosphatase 282 Units/L (34-104) H 01/31/18 04:23 Serum Total Protein 6.1 g/dL (6.4-8.9) L 01/31/18 04:23 Albumin 3.4 g/dL (3.5-5.7) L 01/31/18 04:23 - Attending Attestation I examined this patient and my medical decision-making was reviewed with the Resident Physician. I agree with the documented findings, disposition and treatment plan as described except to the extent set forth below. Palliative Quality Code Status: 01/29/18 18:48 Resuscitation Status: Active [RES] Routine Comment: Resuscitation Status: Full Code - Labs CBC & Chem 7: 01/31/18 04:23 01/31/18 04:23 Labs: Laboratory Results - last 24 hr 01/30/18 01/30/18 01/30/18 08:50 20:15 20:15 WBC 13.4 H RBC 3.12 L Hgb 10.1 L D Hct 30.0 L MCV 96.2 MCH 32.4 MCHC 33.7 RDW 17.2 H Plt Count 126 L MPV 10.2 Immature Gran % 1.0 Seg Neutrophils % 80.8 Band Neutrophils % Lymphocytes % 7.5 Monocytes % 8.8 Eosinophils % 1.9 Basophils % 0.0 Neutrophils # 10.8 H Lymphocytes # 1.0 Monocytes # 1.2 Eosinophils # 0.3 Basophils # 0.0 Reactive Lymphocytes Present A Toxic Granulation Present A Platelet Estimate Hypochromasia Macrocytosis PT 14.4 H INR 1.3 Sodium Potassium Chloride Carbon Dioxide BUN Creatinine Est GFR ( Amer) Est GFR (Non-Af Amer) BUN/Creatinine Ratio Glucose Calculated Osmolality Calcium Total Bilirubin Direct Bilirubin Indirect Bilirubin AST ALT Alkaline Phosphatase Serum Total Protein Albumin Globulin Albumin/Globulin Ratio Blood Type B POSITIVE Antibody Screen POSITIVE Antibody Identification Inconclusive Crossmatch See Detail MTS Gel Crossmatch See Detail 01/31/18 01/31/18 01/31/18 04:23 04:23 04:23 WBC 11.5 H RBC 2.67 L Hgb 8.5 L D Hct 25.1 L MCV 94.0 MCH 31.8 MCHC 33.9 RDW 17.4 H Plt Count 113 L MPV 10.4 Immature Gran % Seg Neutrophils % 84.0 Band Neutrophils % 4.0 Lymphocytes % 6.0 Monocytes % 5.0 Eosinophils % 1.0 Basophils % Neutrophils # 10.1 H Lymphocytes # 0.7 Monocytes # 0.6 Eosinophils # 0.1 Basophils # Reactive Lymphocytes Toxic Granulation Present A Platelet Estimate Slight Decrease L Hypochromasia Present A Macrocytosis Present A PT INR Sodium 133 L Potassium 4.0 Chloride 103 Carbon Dioxide 21 L BUN 34 H Creatinine 1.95 H Est GFR ( Amer) 40 L Est GFR (Non-Af Amer) 33 L BUN/Creatinine Ratio 17 Glucose 119 H Calculated Osmolality 285 Calcium 9.5 Total Bilirubin 4.3 H Direct Bilirubin 2.1 H Indirect Bilirubin 2.2 H AST 67 H ALT 44 Alkaline Phosphatase 282 H Serum Total Protein 6.1 L Albumin 3.4 L Globulin 2.7 Albumin/Globulin Ratio 1.3 Blood Type Antibody Screen Antibody Identification Crossmatch MTS Gel Crossmatch 01/31/18 04:23 WBC RBC Hgb Hct MCV MCH MCHC RDW Plt Count MPV Immature Gran % Seg Neutrophils % Band Neutrophils % Lymphocytes % Monocytes % Eosinophils % Basophils % Neutrophils # Lymphocytes # Monocytes # Eosinophils # Basophils # Reactive Lymphocytes Toxic Granulation Platelet Estimate Hypochromasia Macrocytosis PT 15.6 H INR 1.4 Sodium Potassium Chloride Carbon Dioxide BUN Creatinine Est GFR ( Amer) Est GFR (Non-Af Amer) BUN/Creatinine Ratio Glucose Calculated Osmolality Calcium Total Bilirubin Direct Bilirubin Indirect Bilirubin AST ALT Alkaline Phosphatase Serum Total Protein Albumin Globulin Albumin/Globulin Ratio Blood Type Antibody Screen Antibody Identification Crossmatch MTS Gel Crossmatch - Impressions Impressions Retroperitoneum Ultrasound 01/30/18 17:30
--- NOTE | 2018-01-31 10:44 | Internal Med Progress Note ---
Date of Encounter: 01/31/18 Time of Encounter: 10:42 - Assessment and plan (1) Pancreatic cancer metastasized to liver Current Visit: Yes Status: Acute Assessment and plan: Per PET scan Oncology consult in recommending hospice/palliative care Palliative care consulted-discuss options including placement hospice home care as well as CODE STATUS-currently full code [facility] possible [facility] (2) Acute kidney injury Current Visit: Yes Status: Acute Assessment and plan: Originally presented with a creatinine of 2.59 patient did receive IV fluids and has improved down to 1.952 need to monitor Renal ultrasound: IMPRESSION: Simple bilateral renal cysts. Prostatomegaly. Avoid nephrotoxins consult nephrology as needed (3) Liver metastases Current Visit: Yes Status: Acute Assessment and plan: Oncology consulted-according to note dated 01/30/18-imaging and bx findings consistent with metastatic malignancy likely pancreatic primary. -Recommending palliative consult as well as hospice care (4) Confusion Current Visit: Yes Status: Resolved Assessment and plan: resolved- CT of head was unremarkable Alert appropriate following simple commands (5) Lactic acidosis Current Visit: Yes Status: Acute Assessment and plan: Possibly due to decreased clearance by the liver due to liver disease Continue to monitor Lactate 1.7 01/30 (6) Generalized weakness Current Visit: Yes Status: Acute Assessment and plan: PTOT eval when stable (7) On esomeprazole prophylaxis Current Visit: Yes Status: Acute Assessment and plan: continue same (8) DVT prophylaxis Current Visit: Yes Status: Acute Assessment and plan: SCds-acute anemia of unknown source (9) Anemia Current Visit: Yes Status: Acute Assessment and plan: Patient with acute anemia, presented with hemoglobin of 7 -he was given 2 units PRBCs baseline Hb is 8.0 today it is around 8.5 Cause of anemia is currently unknown Suspect acute on chronic, nutritional deficiency, chronic GI blood loss-anemia workup Awaiting occult stool Conservative measures at this time no EGD per patient/family-continue to monitor H&H Qualifiers: Anemia type: unspecified type Qualified Code(s): D64.9 - Anemia, unspecified (10) Bone metastases Current Visit: Yes Status: Acute - Time Spent With Patient Total time spent is greater than 50% in coordination of care (as documented) at patient's floor/unit and/or counseling patient: - Subjective Interval history: Patient seen and examined at bedside, denies any pain or discomfort at this time. I did speak with Dr Daniel hennessy who will meet with the patient and children later this afternoon concerning Code Status and possible Hospice. No active bleeding noted hemoglobin stable at this time continue to monitor - Constitutional Vitals: Temp Pulse Resp BP Pulse Ox 99.4 F 53 14 147/87 97 01/31/18 07:01 01/31/18 07:01 01/31/18 07:01 01/31/18 07:01 01/31/18 07:01 General appearance: Present: A&O X 3, no acute distress - Head Head exam: Present: atraumatic, normocephalic - Eye Eye exam: Present: PERRL, conjuntiva pink, sclera anicteric Pupils: Present: PERRL - Neck Neck exam general surgery: Present: supple, trachea midline. Absent: lymphadenopathy - Respiratory Respiratory exam: Present: CTAB. Absent: accessory muscle use, rales, rhonchi, wheezes - Cardiovascular Cardiovascular exam: Present: RRR, +S1, +S2. Absent: diastolic murmur, gallop, rubs, systolic murmur - GI/Abdominal GI/Abdominal exam: Present: normal bowel sounds, soft, no peritoneal signs. Absent: distended, tenderness - Extremities Exam Extremities exam: Present: warm, radial pulses palpable and symmetrical. Absent : calf tenderness, cyanotic, pedal edema - Neurological Exam Neurological exam: Present: CN II-XII intact, oriented X3, no focal deficits. Absent: pronater drift, facial droop, speech deficit - Skin Skin exam: Present: dry, intact Internal Medicine: Result - Labs CBC & Chem 7: 01/31/18 04:23 01/31/18 04:23 Labs: Short CBC 01/30/18 01/31/18 Range/Units 20:15 04:23 WBC 13.4 H 11.5 H (4.3-11.1) K/mcL Hgb 10.1 L D 8.5 L D (12.9-16.9) g/dL Hct 30.0 L 25.1 L (37.5-50.1) % Plt Count 126 L 113 L (140-400) K/mcL Neutrophils # 10.8 H 10.1 H (1.6-8.9) K/mcL BMP 01/31/18 04:23 Sodium 133 L Potassium 4.0 Chloride 103 Carbon Dioxide 21 L BUN 34 H Creatinine 1.95 H Glucose 119 H Calcium 9.5 Liver Function 01/31/18 Range/Units 04:23 Total Bilirubin 4.3 H (0.3-1.0) mg/dL Direct Bilirubin 2.1 H (0.0-0.2) mg/dL AST 67 H (13-39) Units/L ALT 44 (7-52) Units/L Alkaline Phosphatase 282 H (34-104) Units/L Albumin 3.4 L (3.5-5.7) g/dL - ABG Interpretation ABG results: PT/INR, D-dimer PT 15.6 Seconds (9.4-12.1) H 01/31/18 04:23 - Impressions Impressions Retroperitoneum Ultrasound 01/30/18 17:30 IMPRESSION: Simple bilateral renal cysts. Prostatomegaly. D/ / Kevin Sosa MD / Kevin Sosa MD Interpreting Provider: Kevin Sosa MD - VTE Documentation of Mechanical Device: Intermittent pneumatic compression device Consult Discharge Plan - Plan Referrals: Rico Reno MD [Family Provider] -
--- NOTE | 2018-01-31 16:35 | Oncology Inp Consult Note ---
Date of Encounter: 01/31/18 Time of Encounter: 17:00 Assessment and Plan (1) Pancreatic cancer metastasized to liver Status: Acute Assessment and plan: Patient with newly diagnosed pancreatic cancer with multiple progressive liver lesions, skeletal lesions, declined performance status with generalized weakness and abdominal discomfort, poor oral intake, seen to discuss biopsy results. Pathology and imaging findings reviewed with patient and numerous other family members today. Treatment for metastatic pancreatic cancer is palliative, with patient's underlying symptoms likely to get worse with systemic chemotherapy with gemcitabine based regimen. Lesions on imaging studies have progressed considerably since his initial scan, CA-19-9 is over 300 ,000. Palliative hospice option discussed with patient who is agreeable as well as multiple family members whose concerns were addressed. Palliative care consult and input appreciated. Will return as needed for any concerns patient/family might have in the future. Discussed with hospital staff, he is being transferred to larger room per family 's request. - Data of Consult Requesting Physician: Que Chapa MD Primary Care Provider: PCP NONE Family Provider: Rico Reno MD - Consult Narrative Reason for consult: metastatic cancer History of present illness: 88-year-old male with medical history significant for hypertension, kidney problems, history of arthritis, status post hernia surgery, shoulder arthritis, who underwent further w/u for weight loss 22 pounds over the last several months , with CT scan at [facility] that showed multiple liver lesions consistent with metastatic disease involving liver primary source not identified. Patient underwent a colonoscopy and biopsy, polypectomy tubular adenoma no invasive carcinoma identified. He further underwent PET imaging studies that showed rapid progression off liver disease, pancreatic mass, skeletal lesions. Patient underwent a CT-guided biopsy of the liver mass that showed metastatic carcinoma, CA-19-9 was positive consistent with pancreaticobiliary origin. Patient was discussed in tumor board multidisciplinary conference and hospice was to be considered as an option due to rapid progression of disease. Patient had declined quite a bit since he was seen for outpatient workup. Family had taken into local facility with weakness and declining performance status abdominal pain poor oral intake, weight loss. Patient is able to communicate and understand the conversation. He has some abdominal pain but this seems to be under control. He does not have an appetite. He denies any shortness of breath headaches or bone pains. Other medical history significant for obstructive sleep apnea, gastric schedule reflects disease, osteoarthritis stage III kidney disease and anemia glaucoma,, COPD history of colon polyps. Past Med Surg Social Fam HX - Past Medical History Medical history: non-contributory, GERD, hyperlipidemia, hypertension Additional medical history: gout Psychiatric history: no psych history - Past Surgical History Surgical History: non-contributory - Social History Smoking Status: Never smoker Smokeless Tobacco Status: No Alcohol use: none Drug use: none - Family History Mother Living Status: Age at : 69 Cause of : Stroke Hx Family Cardiac Disorders: Yes Hx Family Respiratory Disorders: No Hx Family Cancer: No Hx Family GI Disorders: No Hx Family Genitourinary Disorders: No Hx Family Endocrine Disorder: No Hx Family Musculoskeletal Disorders: No Hx Family Neuromuscular Disorders: No Hx Family Neurologic Disorders: Yes Hx Family HEENT Disorders: No Hx Family Autoimmune Disorders: No Hx Family Reproductive Disorders: No Hx Family Psychosocial Disorders: No Hx Family Medical Disorders: No Father Living Status: Age at : 70 Cause of : unknown Hx Family Cardiac Disorders: Yes Hx Family Respiratory Disorders: No Hx Family Cancer: No Hx Family GI Disorders: No Hx Family Genitourinary Disorders: No Hx Family Endocrine Disorder: No Hx Family Musculoskeletal Disorders: No Hx Family Neuromuscular Disorders: No Hx Family Neurologic Disorders: No Hx Family HEENT Disorders: No Hx Family Autoimmune Disorders: No Hx Family Reproductive Disorders: No Hx Family Psychosocial Disorders: No Hx Family Medical Disorders: No Medications and Allergies Allopurinol [Zyloprim 100 MG] 100 mg PO DAILY 01/12/18 [History] Difluprednate [Durezol] 5 ml OP DAILY 01/12/18 [History] Ergocalciferol (VITAMIN D2) [Vitamin D] 400 unit PO DAILY 01/12/18 [History] Finasteride [Proscar] 5 mg PO DAILY 01/12/18 [History] Lisinopril [Zestril] 20 mg PO DAILY 01/12/18 [History] Metoclopramide [Reglan] 5 mg PO TID 01/12/18 [History] Pantoprazole Sodium [Protonix] 40 mg PO BID 01/12/18 [History] Pravastatin Sodium [Pravachol] 80 mg PO DAILY 01/12/18 [History] Spironolactone [Aldactone] 25 mg PO DAILY 01/12/18 [History] Tamsulosin HCl [Flomax] 0.4 mg PO DAILY 01/12/18 [History] Vitamin B Complex [B Complex] 1 each PO DAILY 01/12/18 [History] hydroCHLOROthiazide [Hydrochlorothiazide] 50 mg PO DAILY 01/12/18 [History] 3 Allergy/AdvReac Type Severity Reaction Status Date / Time No Known Allergies Allergy Verified 01/12/18 11:11 Review of systems: as in HPI Oncology - Exam - Constitutional Vitals: Temp Pulse Resp BP Pulse Ox 98.8 F 66 14 154/84 97 01/31/18 15:18 01/31/18 15:18 01/31/18 15:18 01/31/18 15:18 01/31/18 15:18 General appearance: average body habitus - Head Head exam: Present: atraumatic, normal inspection - Eye Eye exam: Present: sclera anicteric - ENT ENT exam: Present: mucous membranes dry - Neck Neck exam: Present: normal inspection - Respiratory Respiratory exam: Present: CTAB - GI/Abdominal GI/Abdominal exam: Present: normal bowel sounds, soft - Extremities Exam Extremities exam: Present: full ROM, normal inspection - Neurological Exam Neurological exam: Present: altered, CN II-XII intact, oriented X3, no focal deficits - Psychiatric Psychiatric exam: Present: normal affect Oncology - Results Labs: 3 01/31/18 01/31/18 01/31/18 04:23 04:23 04:23 WBC RBC Hgb Hct MCV MCH MCHC RDW Plt Count MPV Immature Gran % Seg Neutrophils % Band Neutrophils % Lymphocytes % Monocytes % Eosinophils % Basophils % Neutrophils # Lymphocytes # Monocytes # Eosinophils # Basophils # Reactive Lymphocytes Toxic Granulation Platelet Estimate Hypochromasia Macrocytosis PT 15.6 H INR 1.4 Sodium 133 L Potassium 4.0 Chloride 103 Carbon Dioxide 21 L BUN 34 H Creatinine 1.95 H Est GFR ( Amer) 40 L Est GFR (Non-Af Amer) 33 L BUN/Creatinine Ratio 17 Glucose 119 H Calculated Osmolality 285 Lactic Acid Calcium 9.5 Phosphorus Magnesium Total Bilirubin 4.3 H Direct Bilirubin 2.1 H Indirect Bilirubin 2.2 H AST 67 H ALT 44 Alkaline Phosphatase 282 H Serum Total Protein 6.1 L Albumin 3.4 L Globulin 2.7 Albumin/Globulin Ratio 1.3 Blood Type Antibody Screen Antibody Identification Crossmatch MTS Gel Crossmatch 3 07/03/18 07/02/18 07/02/18 04:23 20:15 20:15 WBC 11.5 H 13.4 H RBC 2.67 L 3.12 L Hgb 8.5 L D 10.1 L D Hct 25.1 L 30.0 L MCV 94.0 96.2 MCH 31.8 32.4 MCHC 33.9 33.7 RDW 17.4 H 17.2 H Plt Count 113 L 126 L MPV 10.4 10.2 Immature Gran % 1.0 Seg Neutrophils % 84.0 80.8 Band Neutrophils % 4.0 Lymphocytes % 6.0 7.5 Monocytes % 5.0 8.8 Eosinophils % 1.0 1.9 Basophils % 0.0 Neutrophils # 10.1 H 10.8 H Lymphocytes # 0.7 1.0 Monocytes # 0.6 1.2 Eosinophils # 0.1 0.3 Basophils # 0.0 Reactive Lymphocytes Present A Toxic Granulation Present A Present A Platelet Estimate Slight Decrease L Hypochromasia Present A Macrocytosis Present A PT 14.4 H INR 1.3 Sodium Potassium Chloride Carbon Dioxide BUN Creatinine Est GFR ( Amer) Est GFR (Non-Af Amer) BUN/Creatinine Ratio Glucose Calculated Osmolality Lactic Acid Calcium Phosphorus Magnesium Total Bilirubin Direct Bilirubin Indirect Bilirubin AST ALT Alkaline Phosphatase Serum Total Protein Albumin Globulin Albumin/Globulin Ratio Blood Type Antibody Screen Antibody Identification Crossmatch MTS Gel Crossmatch 3 01/30/18 01/30/18 01/30/18 08:50 03:44 03:44 WBC 9.4 RBC 2.14 L Hgb 6.9 L Hct 20.9 L MCV 97.7 MCH 32.2 MCHC 33.0 RDW 16.0 H Plt Count 109 L MPV 10.5 Immature Gran % Seg Neutrophils % 78.0 Band Neutrophils % Lymphocytes % 16.0 Monocytes % 4.0 Eosinophils % 2.0 Basophils % Neutrophils # 7.3 Lymphocytes # 1.5 Monocytes # 0.4 Eosinophils # 0.2 Basophils # Reactive Lymphocytes Toxic Granulation Platelet Estimate Slight Decrease L Hypochromasia Present A Macrocytosis PT INR Sodium 137 Potassium 4.2 Chloride 105 Carbon Dioxide 22 L BUN 40 H Creatinine 2.35 H Est GFR ( Amer) 32 L Est GFR (Non-Af Amer) 26 L BUN/Creatinine Ratio 17 Glucose 101 Calculated Osmolality 294 Lactic Acid Calcium 9.5 Phosphorus 3.4 Magnesium 1.6 Total Bilirubin 3.2 H Direct Bilirubin Indirect Bilirubin AST 69 H ALT 46 Alkaline Phosphatase 248 H Serum Total Protein 6.3 L Albumin 3.4 L Globulin 2.9 Albumin/Globulin Ratio 1.2 Blood Type B POSITIVE Antibody Screen POSITIVE Antibody Identification Inconclusive Crossmatch See Detail MTS Gel Crossmatch See Detail 3 01/29/18 01/29/18 01/29/18 19:14 19:14 19:14 WBC 9.1 RBC 2.19 L Hgb 7.4 L Hct 22.0 L MCV 100.5 H MCH 33.8 H MCHC 33.6 RDW 16.2 H Plt Count 107 L MPV 10.5 Immature Gran % Seg Neutrophils % 78.0 Band Neutrophils % Lymphocytes % 12.0 Monocytes % 10.0 Eosinophils % Basophils % Neutrophils # 7.1 Lymphocytes # 1.1 Monocytes # 0.9 Eosinophils # Basophils # Reactive Lymphocytes Toxic Granulation Platelet Estimate Slight Decrease L Hypochromasia Macrocytosis PT INR Sodium 135 L Potassium 4.3 Chloride 103 Carbon Dioxide 25 BUN 44 H Creatinine 2.59 H Est GFR ( Amer) 29 L Est GFR (Non-Af Amer) 24 L BUN/Creatinine Ratio 17 Glucose 143 H Calculated Osmolality 294 Lactic Acid 1.7 Calcium 9.6 Phosphorus 3.4 Magnesium 1.7 Total Bilirubin 2.9 H Direct Bilirubin Indirect Bilirubin AST 71 H ALT 47 Alkaline Phosphatase 277 H Serum Total Protein 6.4 Albumin 3.4 L Globulin 3.0 Albumin/Globulin Ratio 1.1 Blood Type Antibody Screen Antibody Identification Crossmatch MTS Gel Crossmatch PET imaging studies reviewed Consult Discharge Plan - Plan Referrals: Rico Reno MD [Family Provider] -
[2018-02-01] MEDS: *HR* OxyCODONE Immed Rel 5 MG TABLET PO PRN ×2 (01:48→08:06)
[2018-02-01 03:56] LABS: Basophils % 0.1 %; Eosinophils # 0.2 K/mcL (0.0-0.6); Eosinophils % 1.7 %; Hematocrit 26.2 % (37.5-50.1); Immature Granulocytes % 0.8 % (0-4); Immature Reticulocyte % 19.9 % (11.0-38.0); Lymphocytes % 7.8 %; Mean Corpuscular HGB Conc 34.4 g/dL (31.6-35.5); Mean Corpuscular Hemoglobin 32.7 pg (28.0-33.3); Mean Corpuscular Volume 95.3 fL (83.0-100.0); Mean Platelet Volume 9.6 fL (9.4-12.4); Monocytes # 1.2 K/mcL (0.0-1.3); Monocytes % 8.9 %; Neutrophils # 10.6 K/mcL (1.6-8.9); Platelet Count 100 K/mcL (140-400); Red Blood Count 2.75 M/mcL (4.19-5.50); Red Cell Distribution Width 16.9 % (11.5-14.5); Retculocyte # 0.14 M/mcL (0.05-0.10); Segmented Neutrophils % 80.7 %
[2018-02-01 04:16] LABS: Platelet Estimate Normal (Normal); Toxic Granulation Present (Not Present)
[2018-02-01 04:21] LABS: Calcium 9.4 mg/dL (8.6-10.3); Potassium 4.1 mEq/L (3.5-5.1)
[2018-02-01] MEDS: 0.9 % Sodium Chloride 1,000 ML IVC SCH ×3 (06:16→19:42)
[2018-02-01] MEDS: DIFLUPREDNATE OP SCH (07:59)
[2018-02-01] MEDS: Cholecalciferol (D-3) 1,000 UNIT TABLET PO SCH (08:05)
[2018-02-01] MEDS: Finasteride 5 MG TABLET PO SCH (08:05)
[2018-02-01] MEDS: Vitamin B Complex/Vit C/Vit E 1 EACH TABLET PO SCH (08:05)
--- NOTE | 2018-02-01 09:37 | Event Note ---
Date of Encounter: 02/01/18 Time of Encounter: 09:15 Patient resting in bed with eyes closed upon arrival to room. Patient's present at bedside. Patient is alert and oriented times 3. Reports pain to be 4/ 10; has taken 2 doses of Oxycodone in the last 24 hours. Educated on pain medication availability; denies need for pain medication at present time. Patient's reports patient had increased pain in abdomen and behind ear overnight; patient denies. Body temperature appears to be elevating, will order Tylenol PRN. Copy of living will and MPOA made for chart. Patient denies any questions or needs regarding symptom management or code status.
[2018-02-01] MEDS ORDERED: Acetaminophen 325 MG TABLET PO PRN (09:38)
--- NOTE | 2018-02-01 12:16 | Internal Med Progress Note ---
Date of Encounter: 02/01/18 Time of Encounter: 12:16 - Assessment and plan (1) Pancreatic cancer metastasized to liver Current Visit: Yes Status: Acute Assessment and plan: Per PET scan Oncology consult in recommending hospice/palliative care Palliative care consulted-discuss options including placement hospice home care as well as CODE STATUS-currently full code [facility]- [facility] (2) Acute kidney injury Current Visit: Yes Status: Acute Assessment and plan: Originally presented with a creatinine of 2.59 patient did receive IV fluids and has improved down to 1.8 cont monitor Renal ultrasound: IMPRESSION: Simple bilateral renal cysts. Avoid nephrotoxins consult nephrology as needed (3) Liver metastases Current Visit: Yes Status: Acute Assessment and plan: Oncology consulted-according to note dated 01/30/18-imaging and bx findings consistent with metastatic malignancy likely pancreatic primary. -Recommending palliative consult as well as hospice care (4) Confusion Current Visit: Yes Status: Resolved Assessment and plan: resolved- CT of head was unremarkable Patient is groggy/ appropriate following simple commands (5) Lactic acidosis Current Visit: Yes Status: Acute Assessment and plan: Possibly due to decreased clearance by the liver due to liver disease Continue to monitor Lactate 1.7 01/30 (6) Generalized weakness Current Visit: Yes Status: Acute Assessment and plan: PTOT eval when stable (7) On esomeprazole prophylaxis Current Visit: Yes Status: Acute Assessment and plan: continue same (8) DVT prophylaxis Current Visit: Yes Status: Acute Assessment and plan: SCds-acute anemia of unknown source (9) Anemia Current Visit: Yes Status: Acute Assessment and plan: Patient with acute anemia, presented with hemoglobin of 7 -he was given 2 units PRBCs baseline Hb is 8.0 today it is around 9.0 Cause of anemia is currently unknown awaiting occult stool Suspect acute on chronic, nutritional deficiency, chronic GI blood loss- no active bleeding noted at this time Conservative measures at this time no EGD per patient/family-continue to monitor H&H Qualifiers: Anemia type: unspecified type Qualified Code(s): D64.9 - Anemia, unspecified (10) Bone metastases Current Visit: Yes Status: Acute Assessment and plan: as above - Time Spent With Patient Total time spent is greater than 50% in coordination of care (as documented) at patient's floor/unit and/or counseling patient: - Subjective Interval history: Patient seen and examined at bedside, denies any pain or discomfort at this time. Family is at bedside-await decision for possible hospice [facility]- in the a.m. - Constitutional Vitals: Temp Pulse Resp BP Pulse Ox 98.4 F 86 17 138/88 96 02/01/18 11:37 02/01/18 11:37 02/01/18 11:37 02/01/18 11:37 02/01/18 11:37 General appearance: Present: A&O X 3, no acute distress - Head Head exam: Present: atraumatic, normocephalic - Eye Eye exam: Present: PERRL, conjuntiva pink, sclera anicteric Pupils: Present: PERRL - Neck Neck exam general surgery: Present: supple, trachea midline. Absent: lymphadenopathy - Respiratory Respiratory exam: Present: CTAB. Absent: accessory muscle use, rales, rhonchi, wheezes - Cardiovascular Cardiovascular exam: Present: RRR, +S1, +S2. Absent: diastolic murmur, gallop, rubs, systolic murmur - GI/Abdominal GI/Abdominal exam: Present: normal bowel sounds, soft, no peritoneal signs. Absent: distended, tenderness - Extremities Exam Extremities exam: Present: warm, radial pulses palpable and symmetrical. Absent : calf tenderness, cyanotic, pedal edema - Neurological Exam Neurological exam: Present: CN II-XII intact, oriented X3, no focal deficits. Absent: pronater drift, facial droop, speech deficit - Skin Skin exam: Present: dry, intact Internal Medicine: Result - Labs CBC & Chem 7: 02/01/18 03:45 02/01/18 03:45 Labs: Short CBC 02/01/18 Range/Units 03:45 WBC 13.1 H (4.3-11.1) K/mcL Hgb 9.0 L (12.9-16.9) g/dL Hct 26.2 L (37.5-50.1) % Plt Count 100 L (140-400) K/mcL Neutrophils # 10.6 H (1.6-8.9) K/mcL BMP 02/01/18 03:45 Sodium 134 L Potassium 4.1 Chloride 104 Carbon Dioxide 23 BUN 27 H Creatinine 1.81 H Glucose 110 H Calcium 9.4 - ABG Interpretation ABG results: PT/INR, D-dimer PT 15.6 Seconds (9.4-12.1) H 01/31/18 04:23 - VTE Documentation of Mechanical Device: Intermittent pneumatic compression device Consult Discharge Plan - Plan Referrals: Rico Reno MD [Family Provider] -
[2018-02-02 04:57] LABS: Hematocrit 25.5 % (37.5-50.1); Hemoglobin 8.6 g/dL (12.9-16.9); Mean Corpuscular HGB Conc 33.7 g/dL (31.6-35.5); Mean Corpuscular Hemoglobin 32.2 pg (28.0-33.3); Mean Corpuscular Volume 95.5 fL (83.0-100.0); Mean Platelet Volume 10.4 fL (9.4-12.4); Platelet Count 106 K/mcL (140-400); Red Blood Count 2.67 M/mcL (4.19-5.50); Red Cell Distribution Width 16.9 % (11.5-14.5)
[2018-02-02 05:11] LABS: Calcium 9.2 mg/dL (8.6-10.3); Potassium 4.1 mEq/L (3.5-5.1)
[2018-02-02 05:12] LABS: Albumin 3.1 g/dL (3.5-5.7); Albumin/Globulin Ratio 1.1 (1.1-2.2); Bilirubin,Direct 2.3 mg/dL (0.0-0.2); Bilirubin,Indirect 1.8 mg/dL (0.0-1.2); Bilirubin,Total 4.1 mg/dL (0.3-1.0); Globulin 2.8 g/dL (2.4-3.5); Total Protein 5.9 g/dL (6.4-8.9)
[2018-02-02 06:17] LABS: Eosinophils # 0.5 K/mcL (0.0-0.6); Lymphocytes # 1.2 K/mcL (0.6-4.6); Monocytes # 0.5 K/mcL (0.0-1.3); Neutrophils # 14.4 K/mcL (1.6-8.9); Platelet Estimate Slight Decrease (Normal)
[2018-02-02 06:18] LABS: Hypochromasia Present (Not Present); Macrocytosis Present (Not Present); Toxic Granulation Present (Not Present)
[2018-02-02] MEDS: *HR* OxyCODONE Immed Rel 5 MG TABLET PO PRN ×2 (08:02→21:23)
--- NOTE | 2018-02-02 08:12 | Palliative Progress Note ---
<Deanna Rogers - Last Filed: 02/02/18 10:38> Date of Encounter: 02/02/18 Time of Encounter: 08:09 - Assessment and plan (1) Goals of care, counseling/discussion Current Visit: Yes Status: Acute Assessment and plan: Copy of living will and medical POA paperwork are now part of pt's chart. Pt would like to either go home or to [facility]. He was reminded that if he remains FULL CODE then admission to [place] hospice would not be an option. He doesn't wish to change CODE status and will remain FULL CODE. Roxicodone is working well to control pt's pain and he denies nausea. (2) Pancreatic cancer metastasized to liver Current Visit: Yes Status: Acute Assessment and plan: Liver biopsy (01/23/18) and PET scan (01/25/18) results as discussed in consult note. Pain managed with roxicodone 5mg PRN. 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 Pain controlled on roxicodone 5mg PRN. - Time Spent With Patient Total time spent is greater than 50% in coordination of care (as documented) at patient's floor/unit and/or counseling patient: - Subjective Interval history: Patient seen and examined this morning at bedside, he is resting in bed and appears to be in no acute distress. He denies chest pain, shortness of breath, nausea, vomiting, fevers, or chills. He admits to centralized abdominal pain and the roxicodone seems to adequately control his pain. He had received a dose of roxicodone just prior to my exam and interview. He endorses no other complaints at this time. - Constitutional Vitals: Abnormal lab results WBC 16.5 K/mcL (4.3-11.1) H 02/02/18 04:11 RBC 2.67 M/mcL (4.19-5.50) L 02/02/18 04:11 Hgb 8.6 g/dL (12.9-16.9) L 02/02/18 04:11 Hct 25.5 % (37.5-50.1) L 02/02/18 04:11 RDW 16.9 % (11.5-14.5) H 02/02/18 04:11 Plt Count 106 K/mcL (140-400) L 02/02/18 04:11 Reticulocyte # 0.14 M/mcL (0.05-0.10) H 02/01/18 03:45 Neutrophils # 14.4 K/mcL (1.6-8.9) H 02/02/18 04:11 Reactive Lymphocytes Present (Not Present) A 01/30/18 20:15 Toxic Granulation Present (Not Present) A 02/02/18 04:11 Platelet Estimate Slight Decrease (Normal) L 02/02/18 04:11 Hypochromasia Present (Not Present) A 02/02/18 04:11 Macrocytosis Present (Not Present) A 02/02/18 04:11 Percent Retic 5.0 % (1.6-2.8) H 02/01/18 03:45 Retic Hgb Equivalent 38.9 pg (28.61-36.33) H 02/01/18 03:45 PT 15.6 Seconds (9.4-12.1) H 01/31/18 04:23 Sodium 135 mEq/L (136-145) L 02/02/18 04:11 BUN 25 mg/dL (8-23) H 02/02/18 04:11 Creatinine 1.78 mg/dL (0.70-1.30) H 02/02/18 04:11 Est GFR ( Amer) 44 (> 60) L 02/02/18 04:11 Est GFR (Non-Af Amer) 36 (> 60) L 02/02/18 04:11 Glucose 106 mg/dL (70-105) H 02/02/18 04:11 Iron 56 mcg/dL (65-175) L 02/01/18 03:45 Transferrin 195 mg/dL (203-362) L 02/01/18 03:45 Ferritin 762 ng/mL (20-250) H 02/01/18 03:45 Total Bilirubin 4.1 mg/dL (0.3-1.0) H 02/02/18 04:11 Direct Bilirubin 2.3 mg/dL (0.0-0.2) H 02/02/18 04:11 Indirect Bilirubin 1.8 mg/dL (0.0-1.2) H 02/02/18 04:11 AST 67 Units/L (13-39) H 02/02/18 04:11 Alkaline Phosphatase 262 Units/L (34-104) H 02/02/18 04:11 Serum Total Protein 5.9 g/dL (6.4-8.9) L 02/02/18 04:11 Albumin 3.1 g/dL (3.5-5.7) L 02/02/18 04:11 General appearance: Present: no acute distress - Head Head exam: Present: atraumatic, normocephalic - Respiratory Respiratory exam: Present: CTAB. Absent: rales, respiratory distress, rhonchi, wheezes - Cardiovascular Cardiovascular exam: Present: RRR, +S1, +S2 - GI/Abdominal GI/Abdominal exam: Present: normal bowel sounds, soft, tenderness. Absent: distended, guarding, rebound, rigid - Extremities Exam Extremities exam: Present: normal inspection. Absent: pedal edema - Neurological Exam Neurological exam: Present: oriented X3, no focal deficits. Absent: facial droop, speech deficit Additional comments: Resting in bed with eyes closed, responds to voice, answers questions appropriately Palliative Quality Palliative Quality: Screen for Code Status: Yes, Screen for Goals of Care: Yes, Screen for Pain: Yes, Screen for Nausea/Vomitting: Yes Code Status: 01/29/18 18:48 Resuscitation Status: Active [RES] Routine Comment: Resuscitation Status: Full Code - Labs CBC & Chem 7: 02/02/18 04:11 02/02/18 04:11 Labs: Laboratory Results - last 24 hr 02/02/18 02/02/18 02/02/18 04:11 04:11 04:11 WBC 16.5 H RBC 2.67 L Hgb 8.6 L Hct 25.5 L MCV 95.5 MCH 32.2 MCHC 33.7 RDW 16.9 H Plt Count 106 L MPV 10.4 Seg Neutrophils % 85.0 Band Neutrophils % 2.0 Lymphocytes % 7.0 Monocytes % 3.0 Eosinophils % 3.0 Neutrophils # 14.4 H Lymphocytes # 1.2 Monocytes # 0.5 Eosinophils # 0.5 Toxic Granulation Present A Platelet Estimate Slight Decrease L Hypochromasia Present A Macrocytosis Present A Sodium 135 L Potassium 4.1 Chloride 104 Carbon Dioxide 23 BUN 25 H Creatinine 1.78 H Est GFR ( Amer) 44 L Est GFR (Non-Af Amer) 36 L BUN/Creatinine Ratio 14 Glucose 106 H Calculated Osmolality 285 Calcium 9.2 Total Bilirubin 4.1 H Direct Bilirubin 2.3 H Indirect Bilirubin 1.8 H AST 67 H ALT 42 Alkaline Phosphatase 262 H Serum Total Protein 5.9 L Albumin 3.1 L Globulin 2.8 Albumin/Globulin Ratio 1.1 - ABG Interpretation ABG results: PT/INR, D-dimer PT 15.6 Seconds (9.4-12.1) H 01/31/18 04:23 Consult Discharge Plan - Plan Referrals: Rico Reno MD [Family Provider] - <Gio Sanchez - Last Filed: 02/02/18 13:02> Date of Encounter: 02/02/18 - Time Spent With Patient Total time spent is greater than 50% in coordination of care (as documented) at patient's floor/unit and/or counseling patient: - Constitutional Vitals: Abnormal lab results WBC 16.5 K/mcL (4.3-11.1) H 02/02/18 04:11 RBC 2.67 M/mcL (4.19-5.50) L 02/02/18 04:11 Hgb 8.6 g/dL (12.9-16.9) L 02/02/18 04:11 Hct 25.5 % (37.5-50.1) L 02/02/18 04:11 RDW 16.9 % (11.5-14.5) H 02/02/18 04:11 Plt Count 106 K/mcL (140-400) L 02/02/18 04:11 Reticulocyte # 0.14 M/mcL (0.05-0.10) H 02/01/18 03:45 Neutrophils # 14.4 K/mcL (1.6-8.9) H 02/02/18 04:11 Reactive Lymphocytes Present (Not Present) A 01/30/18 20:15 Toxic Granulation Present (Not Present) A 02/02/18 04:11 Platelet Estimate Slight Decrease (Normal) L 02/02/18 04:11 Hypochromasia Present (Not Present) A 02/02/18 04:11 Macrocytosis Present (Not Present) A 02/02/18 04:11 Percent Retic 5.0 % (1.6-2.8) H 02/01/18 03:45 Retic Hgb Equivalent 38.9 pg (28.61-36.33) H 02/01/18 03:45 PT 15.6 Seconds (9.4-12.1) H 01/31/18 04:23 Sodium 135 mEq/L (136-145) L 02/02/18 04:11 BUN 25 mg/dL (8-23) H 02/02/18 04:11 Creatinine 1.78 mg/dL (0.70-1.30) H 02/02/18 04:11 Est GFR ( Amer) 44 (> 60) L 02/02/18 04:11 Est GFR (Non-Af Amer) 36 (> 60) L 02/02/18 04:11 Glucose 106 mg/dL (70-105) H 02/02/18 04:11 Iron 56 mcg/dL (65-175) L 02/01/18 03:45 Transferrin 195 mg/dL (203-362) L 02/01/18 03:45 Ferritin 762 ng/mL (20-250) H 02/01/18 03:45 Total Bilirubin 4.1 mg/dL (0.3-1.0) H 02/02/18 04:11 Direct Bilirubin 2.3 mg/dL (0.0-0.2) H 02/02/18 04:11 Indirect Bilirubin 1.8 mg/dL (0.0-1.2) H 02/02/18 04:11 AST 67 Units/L (13-39) H 02/02/18 04:11 Alkaline Phosphatase 262 Units/L (34-104) H 02/02/18 04:11 Serum Total Protein 5.9 g/dL (6.4-8.9) L 02/02/18 04:11 Albumin 3.1 g/dL (3.5-5.7) L 02/02/18 04:11 - Attending Attestation I examined this patient and my medical decision-making was reviewed with the Resident Physician. I agree with the documented findings, disposition and treatment plan as described except to the extent set forth below. Palliative Quality Code Status: 01/29/18 18:48 Resuscitation Status: Active [RES] Routine Comment: Resuscitation Status: Full Code - Labs CBC & Chem 7: 02/02/18 04:11 02/02/18 04:11 Labs: Laboratory Results - last 24 hr 02/02/18 02/02/18 02/02/18 04:11 04:11 04:11 WBC 16.5 H RBC 2.67 L Hgb 8.6 L Hct 25.5 L MCV 95.5 MCH 32.2 MCHC 33.7 RDW 16.9 H Plt Count 106 L MPV 10.4 Seg Neutrophils % 85.0 Band Neutrophils % 2.0 Lymphocytes % 7.0 Monocytes % 3.0 Eosinophils % 3.0 Neutrophils # 14.4 H Lymphocytes # 1.2 Monocytes # 0.5 Eosinophils # 0.5 Toxic Granulation Present A Platelet Estimate Slight Decrease L Hypochromasia Present A Macrocytosis Present A Sodium 135 L Potassium 4.1 Chloride 104 Carbon Dioxide 23 BUN 25 H Creatinine 1.78 H Est GFR ( Amer) 44 L Est GFR (Non-Af Amer) 36 L BUN/Creatinine Ratio 14 Glucose 106 H Calculated Osmolality 285 Calcium 9.2 Total Bilirubin 4.1 H Direct Bilirubin 2.3 H Indirect Bilirubin 1.8 H AST 67 H ALT 42 Alkaline Phosphatase 262 H Serum Total Protein 5.9 L Albumin 3.1 L Globulin 2.8 Albumin/Globulin Ratio 1.1 - ABG Interpretation ABG results: PT/INR, D-dimer PT 15.6 Seconds (9.4-12.1) H 01/31/18 04:23
[2018-02-02] MEDS: DIFLUPREDNATE OP SCH (10:04)
[2018-02-02] MEDS: Finasteride 5 MG TABLET PO SCH (10:04)
[2018-02-02] MEDS: Vitamin B Complex/Vit C/Vit E 1 EACH TABLET PO SCH (10:04)
[2018-02-02] MEDS: Cholecalciferol (D-3) 1,000 UNIT TABLET PO SCH (10:04)
[2018-02-02] MEDS: 0.9 % Sodium Chloride 1,000 ML IVC SCH ×2 (10:05→23:33)
--- NOTE | 2018-02-02 10:10 | Internal Med Progress Note ---
Date of Encounter: 02/03/18 Time of Encounter: 10:07 - Assessment and plan (1) Pancreatic cancer metastasized to liver Current Visit: Yes Status: Acute Assessment and plan: Per PET scan Oncology consult in recommending hospice/palliative care Palliative care consulted-discuss options including placement hospice home care as well as CODE STATUS-currently full code [facility] (2) Acute kidney injury Current Visit: Yes Status: Acute Assessment and plan: Originally presented with a creatinine of 2.59 patient did receive IV fluids and has improved down to 1.78 cont monitor Renal ultrasound: IMPRESSION: Simple bilateral renal cysts. Avoid nephrotoxins consult nephrology as needed (3) Liver metastases Current Visit: Yes Status: Acute Assessment and plan: Oncology consulted-according to note dated 01/30/18-imaging and bx findings consistent with metastatic malignancy likely pancreatic primary. -Recommending palliative consult as well as hospice care (4) Confusion Current Visit: Yes Status: Resolved Assessment and plan: resolved- CT of head was unremarkable Patient is groggy/ appropriate following simple commands (5) Lactic acidosis Current Visit: Yes Status: Acute Assessment and plan: Possibly due to decreased clearance by the liver due to liver disease Continue to monitor Lactate 1.7 01/30 (6) Generalized weakness Current Visit: Yes Status: Acute Assessment and plan: PTOT eval when stable (7) On esomeprazole prophylaxis Current Visit: Yes Status: Acute Assessment and plan: continue same (8) DVT prophylaxis Current Visit: Yes Status: Acute Assessment and plan: SCds-acute anemia of unknown source (9) Anemia Current Visit: Yes Status: Acute Assessment and plan: Patient with acute anemia, presented with hemoglobin of 7 -he was given 2 units PRBCs baseline Hb is 8.0 today 8.6 Cause of anemia is currently unknown awaiting occult stool Suspect acute on chronic, nutritional deficiency, chronic GI blood loss- no active bleeding noted at this time Conservative measures at this time no EGD per patient/family-continue to monitor H&H Qualifiers: Anemia type: unspecified type Qualified Code(s): D64.9 - Anemia, unspecified (10) Bone metastases Current Visit: Yes Status: Acute Assessment and plan: as above (11) Leukocytosis Current Visit: Yes Status: Acute Assessment and plan: 1 patient has had a low-grade temperature 90.9 200, white count 16 we will panculture patient, urine culture blood culture chest x-ray Qualifiers: Leukocytosis type: unspecified Qualified Code(s): D72.829 - Elevated white blood cell count, unspecified - Time Spent With Patient Total time spent is greater than 50% in coordination of care (as documented) at patient's floor/unit and/or counseling patient: - Subjective Interval history: Patient seen and examined at bedside, has had some upper R quad abd pain. Improved with pain meds. Discussed with social science manager attempting to place [facility] Updated patient's family on treatment plan who verbalized understanding. - Constitutional Vitals: Temp Pulse Resp BP Pulse Ox 99.6 F 78 14 156/83 95 02/02/18 07:06 02/02/18 07:06 02/02/18 07:06 02/02/18 07:06 02/02/18 07:06 General appearance: Present: A&O X 3, no acute distress - Head Head exam: Present: atraumatic, normocephalic - Eye Eye exam: Present: PERRL, conjuntiva pink, sclera anicteric Pupils: Present: PERRL - Neck Neck exam general surgery: Present: supple, trachea midline. Absent: lymphadenopathy - Respiratory Respiratory exam: Present: CTAB. Absent: accessory muscle use, rales, rhonchi, wheezes - Cardiovascular Cardiovascular exam: Present: RRR, +S1, +S2. Absent: diastolic murmur, gallop, rubs, systolic murmur - GI/Abdominal GI/Abdominal exam: Present: normal bowel sounds, soft, no peritoneal signs. Absent: distended, tenderness - Extremities Exam Extremities exam: Present: warm, radial pulses palpable and symmetrical. Absent : calf tenderness, cyanotic, pedal edema - Neurological Exam Neurological exam: Present: CN II-XII intact, oriented X3, no focal deficits. Absent: pronater drift, facial droop, speech deficit - Skin Skin exam: Present: dry, intact Internal Medicine: Result - Labs CBC & Chem 7: 02/02/18 04:11 02/02/18 04:11 Labs: Short CBC 02/02/18 Range/Units 04:11 WBC 16.5 H (4.3-11.1) K/mcL Hgb 8.6 L (12.9-16.9) g/dL Hct 25.5 L (37.5-50.1) % Plt Count 106 L (140-400) K/mcL Neutrophils # 14.4 H (1.6-8.9) K/mcL BMP 02/02/18 04:11 Sodium 135 L Potassium 4.1 Chloride 104 Carbon Dioxide 23 BUN 25 H Creatinine 1.78 H Glucose 106 H Calcium 9.2 Liver Function 02/02/18 Range/Units 04:11 Total Bilirubin 4.1 H (0.3-1.0) mg/dL Direct Bilirubin 2.3 H (0.0-0.2) mg/dL AST 67 H (13-39) Units/L ALT 42 (7-52) Units/L Alkaline Phosphatase 262 H (34-104) Units/L Albumin 3.1 L (3.5-5.7) g/dL - ABG Interpretation ABG results: PT/INR, D-dimer PT 15.6 Seconds (9.4-12.1) H 01/31/18 04:23 - VTE Documentation of Mechanical Device: Intermittent pneumatic compression device Consult Discharge Plan - Plan Referrals: Rico Reno MD [Family Provider] -
[2018-02-02 13:53] LABS: Bilirubin,Urine Negative (Negative); Blood,Urine Negative (Negative); Clarity,Urine Cloudy (Clear); Color,Urine Dark Yellow (Yellow); Glucose,Urine (UA) Normal (Normal); Ketones,Urine Negative (Negative); Leukocyte Esterase,Urine Negative (Negative); Nitrite,Urine Negative (Negative); PH,Urine 5.5 pH Units (5.0-8.0); Protein,Urine 30 mg/dL (Neg-Trace); Specific Gravity,Urine 1.018 (1.010-1.025)
[2018-02-02 13:58] LABS: Hyaline Casts,Urine None Seen per lpf (None-Few); Squamous Epithelial Cell,Urine Moderate per lpf (None-Few); WBC,Urine 0-3 per hpf (0-3)
[2018-02-02 15:02] LABS: Amorphous Sediment,Urine Moderate (Few); Granular Casts,Urine Few per lpf (None Seen)
[2018-02-02 15:05] LABS: Bacteria,Urine Few per hpf (None-Few)
[2018-02-03] MEDS: cefTRIAXone 1,000 MG in Water for inj. (sterile) 20 ML 10 ML IVP SCH (08:08)
[2018-02-03] MEDS: Cholecalciferol (D-3) 1,000 UNIT TABLET PO SCH (08:09)
[2018-02-03] MEDS: Vitamin B Complex/Vit C/Vit E 1 EACH TABLET PO SCH (08:09)
[2018-02-03] MEDS: DIFLUPREDNATE OP SCH (08:09)
[2018-02-03] MEDS: Finasteride 5 MG TABLET PO SCH (08:09)
[2018-02-03 08:27] LABS: Eosinophils # 0.3 K/mcL (0.0-0.6); Eosinophils % 1.9 %; Hemoglobin 8.7 g/dL (12.9-16.9); Immature Granulocytes % 0.8 % (0-4); Lymphocytes # 1.1 K/mcL (0.6-4.6); Lymphocytes % 7.2 %; Mean Corpuscular HGB Conc 33.5 g/dL (31.6-35.5); Mean Corpuscular Hemoglobin 32.3 pg (28.0-33.3); Mean Corpuscular Volume 96.7 fL (83.0-100.0); Mean Platelet Volume 10.4 fL (9.4-12.4); Monocytes # 1.4 K/mcL (0.0-1.3); Monocytes % 8.7 %; Platelet Count 108 K/mcL (140-400); Red Blood Count 2.69 M/mcL (4.19-5.50); Red Cell Distribution Width 17.1 % (11.5-14.5); Segmented Neutrophils % 81.4 %
[2018-02-03 08:29] LABS: Calcium 9.4 mg/dL (8.6-10.3); Potassium 4.2 mEq/L (3.5-5.1)
[2018-02-03 08:53] LABS: Neutrophils # 12.6 K/mcL (1.6-8.9)
--- NOTE | 2018-02-03 10:21 | Internal Med Progress Note ---
Date of Encounter: 02/03/18 Time of Encounter: 10:20 - Assessment and plan (1) Pancreatic cancer metastasized to liver Current Visit: Yes Status: Acute Assessment and plan: Per PET scan Oncology consult is recommending hospice/palliative care Palliative care consulted-discuss options -patient is a DNR CC he will contact hospice at the [facility] placement- awaiting placement (2) Acute kidney injury Current Visit: Yes Status: Acute Assessment and plan: Originally presented with a creatinine of 2.59 patient did receive IV fluids and has improved down to 1.68-we will continue to monitor Renal ultrasound: IMPRESSION: Simple bilateral renal cysts. Avoid nephrotoxins consult nephrology as needed (3) Liver metastases Current Visit: Yes Status: Acute Assessment and plan: Oncology consulted-according to note dated 01/30/18-imaging and bx findings consistent with metastatic malignancy likely pancreatic primary. -Recommending palliative consult as well as hospice care (4) Confusion Current Visit: Yes Status: Resolved Assessment and plan: resolved- CT of head was unremarkable Patient is groggy/ appropriate following simple commands (5) Lactic acidosis Current Visit: Yes Status: Acute Assessment and plan: Possibly due to decreased clearance by the liver due to liver disease-down 0.8- resolved Continue to monitor Lactate 1.7 / (6) Generalized weakness Current Visit: Yes Status: Acute Assessment and plan: PTOT eval when stable (7) On esomeprazole prophylaxis Current Visit: Yes Status: Acute Assessment and plan: continue same (8) DVT prophylaxis Current Visit: Yes Status: Acute Assessment and plan: SCds-acute anemia of unknown source (9) Anemia Current Visit: Yes Status: Acute Assessment and plan: Patient with acute anemia, presented with hemoglobin of 7 -he was given 2 units PRBCs baseline Hb is 8.0 today 8.7 stable Cause of anemia is currently unknown awaiting occult stool Suspect acute on chronic, nutritional deficiency, chronic GI blood loss- no active bleeding noted at this time Conservative measures at this time no EGD per patient/family-continue to monitor H&H Qualifiers: Anemia type: unspecified type Qualified Code(s): D64.9 - Anemia, unspecified (10) Bone metastases Current Visit: Yes Status: Acute Assessment and plan: as above (11) Leukocytosis Current Visit: Yes Status: Acute Assessment and plan: 1 patient has had a low-grade temperature 99-100 White count down to 15 today Urine appears to be clean Chest x-ray with no acute process Pending blood cultures Initiated on Rocephin we will continue to monitor Qualifiers: Leukocytosis type: unspecified Qualified Code(s): D72.829 - Elevated white blood cell count, unspecified - Time Spent With Patient Total time spent is greater than 50% in coordination of care (as documented) at patient's floor/unit and/or counseling patient: - Subjective Interval history: Patient seen and examined at bedside, no pain or discomfort at this time. Paperwork has been sent to [facility]. Awaiting bed placement Updated patient 's family on treatment plan, and that we are waiting for bed placement who verbalized understanding. - Constitutional Vitals: Temp Pulse Resp BP Pulse Ox 98.6 F 83 18 163/89 97 02/03/18 07:02 02/03/18 07:02 02/03/18 07:02 02/03/18 07:02 02/03/18 07:02 General appearance: Present: A&O X 3, no acute distress - Head Head exam: Present: atraumatic, normocephalic - Eye Eye exam: Present: PERRL, conjuntiva pink, sclera anicteric Pupils: Present: PERRL - Neck Neck exam general surgery: Present: supple, trachea midline. Absent: lymphadenopathy - Respiratory Respiratory exam: Present: CTAB. Absent: accessory muscle use, rales, rhonchi, wheezes - Cardiovascular Cardiovascular exam: Present: RRR, +S1, +S2. Absent: diastolic murmur, gallop, rubs, systolic murmur - GI/Abdominal GI/Abdominal exam: Present: normal bowel sounds, soft, no peritoneal signs. Absent: distended, tenderness - Extremities Exam Extremities exam: Present: warm, radial pulses palpable and symmetrical. Absent : calf tenderness, cyanotic, pedal edema - Neurological Exam Neurological exam: Present: CN II-XII intact, oriented X3, no focal deficits. Absent: pronater drift, facial droop, speech deficit - Skin Skin exam: Present: dry, intact Internal Medicine: Result - Labs CBC & Chem 7: 02/03/18 07:40 02/03/18 07:40 Labs: Short CBC 02/03/18 Range/Units 07:40 WBC 15.5 H (4.3-11.1) K/mcL Hgb 8.7 L (12.9-16.9) g/dL Hct 26.0 L (37.5-50.1) % Plt Count 108 L (140-400) K/mcL Neutrophils # 12.6 H (1.6-8.9) K/mcL BMP 02/03/18 07:40 Sodium 135 L Potassium 4.2 Chloride 105 Carbon Dioxide 23 BUN 26 H Creatinine 1.68 H Glucose 101 Calcium 9.4 Urine 02/02/18 Range/Units 12:30 Urine Color Dark Yellow (Yellow) Urine Clarity Cloudy A (Clear) Urine pH 5.5 (5.0-8.0) pH Units Ur Specific [place] 1.018 (1.010-1.025) Urine Protein 30 H (Neg-Trace) mg/dL Urine Glucose (UA) Normal (Normal) mg/dL - ABG Interpretation ABG results: PT/INR, D-dimer PT 15.6 Seconds (9.4-12.1) H 01/31/18 04:23 - Impressions Impressions Chest X-Ray 02/02/18 10:03 IMPRESSION: Right infrahilar and left basilar atelectasis or fibrosis. D/ / 02/02/2018 15:09:24 Mina Pizano MD / [facility] Interpreting Provider: Mina Pizano MD - VTE Documentation of Mechanical Device: Intermittent pneumatic compression device Consult Discharge Plan - Plan Referrals: Rico Reno MD [Family Provider] -
[2018-02-03] MEDS: 0.9 % Sodium Chloride 1,000 ML IVC SCH (13:40)
[2018-02-03] MEDS: *HR* OxyCODONE Immed Rel 5 MG TABLET PO PRN ×2 (17:23→21:45)
[2018-02-04] MEDS: 0.9 % Sodium Chloride 1,000 ML IVC SCH (02:12)
[2018-02-04 06:19] LABS: Eosinophils # 0.1 K/mcL (0.0-0.6); Eosinophils % 0.8 %; Hematocrit 27.2 % (37.5-50.1); Hemoglobin 8.9 g/dL (12.9-16.9); Immature Granulocytes % 0.7 % (0-4); Lymphocytes # 0.7 K/mcL (0.6-4.6); Lymphocytes % 4.3 %; Mean Corpuscular HGB Conc 32.7 g/dL (31.6-35.5); Mean Corpuscular Volume 97.8 fL (83.0-100.0); Mean Platelet Volume 10.2 fL (9.4-12.4); Monocytes # 1.2 K/mcL (0.0-1.3); Monocytes % 7.6 %; Neutrophils # 13.9 K/mcL (1.6-8.9); Platelet Count 106 K/mcL (140-400); Red Blood Count 2.78 M/mcL (4.19-5.50); Red Cell Distribution Width 16.9 % (11.5-14.5); Segmented Neutrophils % 86.6 %
[2018-02-04 06:36] LABS: Calcium 9.5 mg/dL (8.6-10.3); Potassium 4.7 mEq/L (3.5-5.1)
[2018-02-04 06:46] LABS: Platelet Estimate Normal (Normal)
[2018-02-04] MEDS: Vitamin B Complex/Vit C/Vit E 1 EACH TABLET PO SCH (09:24)
[2018-02-04] MEDS: cefTRIAXone 1,000 MG in Water for inj. (sterile) 20 ML 10 ML IVP SCH (09:24)
[2018-02-04] MEDS: Finasteride 5 MG TABLET PO SCH (09:25)
[2018-02-04] MEDS: Cholecalciferol (D-3) 1,000 UNIT TABLET PO SCH (09:25)
--- NOTE | 2018-02-04 10:49 | Internal Med Progress Note ---
Date of Encounter: 02/04/18 Time of Encounter: 10:48 - Assessment and plan (1) Pancreatic cancer metastasized to liver Current Visit: Yes Status: Acute Assessment and plan: Per PET scan Oncology consult is recommending hospice/palliative care Palliative care consulted-discuss options -patient is a DNR CC he will contact hospice at the [place]-awaiting bed placement (2) Acute kidney injury Current Visit: Yes Status: Acute Assessment and plan: Originally presented with a creatinine of 2.59 patient did receive IV fluids and has improved -we will continue to monitor Renal ultrasound: IMPRESSION: Simple bilateral renal cysts. Avoid nephrotoxins consult nephrology as needed (3) Liver metastases Current Visit: Yes Status: Acute Assessment and plan: Oncology consulted-according to note dated 01/30/18-imaging and bx findings consistent with metastatic malignancy likely pancreatic primary. -Recommending palliative consult as well as hospice care Liver enzymes elevated (4) Confusion Current Visit: Yes Status: Resolved Assessment and plan: resolved- CT of head was unremarkable Patient is more awake and follows simple commands (5) Lactic acidosis Current Visit: Yes Status: Acute Assessment and plan: Possibly due to decreased clearance by the liver due to liver disease-down 0.8- resolved Continue to monitor Lactate 1.7 7/ (6) Generalized weakness Current Visit: Yes Status: Acute Assessment and plan: PTOT eval when stable (7) On esomeprazole prophylaxis Current Visit: Yes Status: Acute Assessment and plan: continue same (8) Anemia Current Visit: Yes Status: Acute Assessment and plan: Patient with acute anemia, presented with hemoglobin of 7 -he was given 2 units PRBCs baseline Hb is 8.0 today 8.9 stable Cause of anemia is currently unknown awaiting occult stool Suspect acute on chronic, nutritional deficiency, chronic GI blood loss- no active bleeding noted at this time Conservative measures at this time no EGD per patient/family-continue to monitor H&H Qualifiers: Anemia type: unspecified type Qualified Code(s): D64.9 - Anemia, unspecified (9) Bone metastases Current Visit: Yes Status: Acute Assessment and plan: as above (10) Leukocytosis Current Visit: Yes Status: Acute Assessment and plan: 1 patient has had a low-grade temperature 99-100 White count down to 15 today Urine appears to be clean Chest x-ray with no acute process Pending blood cultures Suspect related to malignancy will cont to monitor Qualifiers: Leukocytosis type: unspecified Qualified Code(s): D72.829 - Elevated white blood cell count, unspecified (11) DVT prophylaxis Current Visit: Yes Status: Acute Assessment and plan: SCds-acute anemia of unknown source - Time Spent With Patient Total time spent is greater than 50% in coordination of care (as documented) at patient's floor/unit and/or counseling patient: - Subjective Interval history: Patient seen and examined at bedside, no pain or discomfort at this time. Paperwork has been sent to [facility]. Awaiting bed placement Updated patient 's family on treatment plan, and that we are waiting for bed placement expect placment on Tuesday family verbalized understanding. No changes from yesterday - Constitutional Vitals: Temp Pulse Resp BP Pulse Ox 99.0 F 84 16 152/91 97 02/04/18 07:33 02/04/18 07:33 02/04/18 07:33 02/04/18 07:33 02/04/18 09:30 General appearance: Present: A&O X 3, no acute distress Internal Medicine: Result - Labs CBC & Chem 7: 02/04/18 05:50 02/04/18 05:50 Labs: Short CBC 02/04/18 Range/Units 05:50 WBC 16.1 H (4.3-11.1) K/mcL Hgb 8.9 L (12.9-16.9) g/dL Hct 27.2 L (37.5-50.1) % Plt Count 106 L (140-400) K/mcL Neutrophils # 13.9 H (1.6-8.9) K/mcL BMP 02/04/18 05:50 Sodium 136 Potassium 4.7 Chloride 104 Carbon Dioxide 23 BUN 26 H Creatinine 1.87 H Glucose 107 H Calcium 9.5 - ABG Interpretation ABG results: PT/INR, D-dimer PT 15.6 Seconds (9.4-12.1) H 01/31/18 04:23 - VTE Documentation of Mechanical Device: Intermittent pneumatic compression device Consult Discharge Plan - Plan Referrals: Rico Reno MD [Family Provider] -
[2018-02-04] MEDS: *HR* OxyCODONE Immed Rel 5 MG TABLET PO PRN (10:52)
[2018-02-04] MEDS: DIFLUPREDNATE OP SCH ×4 (15:14→21:02)
[2018-02-04] MEDS ORDERED: Ondansetron 4 MG/2 ML VIAL IVP PRN (18:46)
[2018-02-05] MEDS ORDERED: diazePAM 2 MG TABLET PO ONE (05:16)
[2018-02-05] MEDS: Finasteride 5 MG TABLET PO SCH (07:55)
[2018-02-05] MEDS: Vitamin B Complex/Vit C/Vit E 1 EACH TABLET PO SCH (07:55)
[2018-02-05] MEDS: *HR* OxyCODONE Immed Rel 5 MG TABLET PO PRN (07:55)
[2018-02-05] MEDS: Cholecalciferol (D-3) 1,000 UNIT TABLET PO SCH (07:55)
[2018-02-05] MEDS: DIFLUPREDNATE OP SCH ×4 (08:11→21:23)
[2018-02-05] MEDS ORDERED: DIFLUPREDNATE OP SCH (09:00)
[2018-02-05] MEDS ORDERED: hydroCHLOROthiazide 25 MG TABLET PO SCH (09:00)
--- NOTE | 2018-02-05 11:24 | Internal Med Progress Note ---
Date of Encounter: 02/05/18 Time of Encounter: 11:24 - Assessment and plan (1) Pancreatic cancer metastasized to liver Current Visit: Yes Status: Acute Assessment and plan: Per PET scan Oncology consultation is recommending hospice/palliative care Palliative care consulted-discuss options -patient is a DNR CC he will contact hospice at the [place]-awaiting bed placement (2) Acute kidney injury Current Visit: Yes Status: Acute Assessment and plan: Originally presented with a creatinine of 2.59 patient did receive IV fluids and has improved awaiting this am results -we will continue to monitor Renal ultrasound: IMPRESSION: Simple bilateral renal cysts. Avoid nephrotoxins consult nephrology as needed Monitor I/O avoid nephrotoxins (3) Liver metastases Current Visit: Yes Status: Acute Assessment and plan: Oncology consulted-according to note dated 01/30/18-imaging and bx findings consistent with metastatic malignancy likely pancreatic primary. -Recommending palliative consult as well as hospice care Liver enzymes elevated (4) Confusion Current Visit: Yes Status: Resolved Assessment and plan: resolved- CT of head was unremarkable Patient is more awake and follows simple commands (5) Lactic acidosis Current Visit: Yes Status: Acute Assessment and plan: Possibly due to decreased clearance by the liver due to liver disease-down 0.8- resolved Continue to monitor Lactate 1.7 / (6) Generalized weakness Current Visit: Yes Status: Acute Assessment and plan: PT/OT eval when stable (7) On esomeprazole prophylaxis Current Visit: Yes Status: Acute Assessment and plan: continue Prilosec BID (8) Anemia Current Visit: Yes Status: Acute Assessment and plan: Patient with acute anemia, presented with hemoglobin of 7 -he was given 2 units PRBCs baseline Hb is 8.0 is has been stable awaiting todays' results No s/sx of active bleeding Cause of anemia is currently unknown awaiting occult stool Suspect acute on chronic, nutritional deficiency, chronic GI blood loss- no active bleeding noted at this time Conservative measures at this time no EGD per patient/family-continue to monitor H&H Qualifiers: Anemia type: unspecified type Qualified Code(s): D64.9 - Anemia, unspecified (9) Bone metastases Current Visit: Yes Status: Acute Assessment and plan: as above continue with pain medication oxycodone 5mg q 4h (10) Leukocytosis Current Visit: Yes Status: Acute Assessment and plan: 1 patient has had a low-grade temperature 99-100 White up to 16 waiting for today results Urine appears to be clean Chest x-ray with no acute process Pending blood cultures Suspect related to malignancy will cont to monitor Qualifiers: Leukocytosis type: unspecified Qualified Code(s): D72.829 - Elevated white blood cell count, unspecified (11) DVT prophylaxis Current Visit: Yes Status: Acute Assessment and plan: SCds-acute anemia of unknown source - Time Spent With Patient Total time spent is greater than 50% in coordination of care (as documented) at patient's floor/unit and/or counseling patient: - Subjective Interval history: Patient seen and examined at bedside, no pain or discomfort at this time. Paperwork has been sent to [facility]. Awaiting bed placement Updated patient 's family on treatment plan, and that we are waiting for bed placement expect placment on Tuesday family verbalized understanding. No changes from yesterday - Constitutional Vitals: Temp Pulse Resp BP Pulse Ox 99.6 F 95 16 148/93 96 02/05/18 08:18 02/05/18 08:18 02/05/18 08:18 02/05/18 08:18 02/05/18 08:18 General appearance: Present: A&O X 3, no acute distress Exam: Patient is sleeping arouses to verbal stimuli Oriented x3 - Head Head exam: Present: atraumatic, normocephalic - Eye Eye exam: Present: PERRL, conjuntiva pink, sclera anicteric Pupils: Present: PERRL - Neck Neck exam general surgery: Present: supple, trachea midline. Absent: lymphadenopathy - Respiratory Respiratory exam: Present: CTAB. Absent: accessory muscle use, rales, rhonchi, wheezes - Cardiovascular Cardiovascular exam: Present: RRR, +S1, +S2. Absent: diastolic murmur, gallop, rubs, systolic murmur - GI/Abdominal GI/Abdominal exam: Present: normal bowel sounds, soft, no peritoneal signs. Absent: distended, tenderness - Extremities Exam Extremities exam: Present: warm, radial pulses palpable and symmetrical. Absent : calf tenderness, cyanotic, pedal edema - Neurological Exam Neurological exam: Present: CN II-XII intact, oriented X3, no focal deficits. Absent: pronater drift, facial droop, speech deficit - Skin Skin exam: Present: dry, intact Internal Medicine: Result - Labs CBC & Chem 7: 02/04/18 05:50 02/04/18 05:50 - ABG Interpretation ABG results: PT/INR, D-dimer PT 15.6 Seconds (9.4-12.1) H 01/31/18 04:23 - VTE Documentation of Mechanical Device: Intermittent pneumatic compression device Consult Discharge Plan - Plan Referrals: Rico Reno MD [Family Provider] -
[2018-02-05 15:37] LABS: Basophils % 0.1 %; Eosinophils # 0.1 K/mcL (0.0-0.6); Eosinophils % 0.6 %; Hemoglobin 9.6 g/dL (12.9-16.9); Immature Granulocytes % 0.7 % (0-4); Lymphocytes # 0.9 K/mcL (0.6-4.6); Lymphocytes % 5.4 %; Mean Corpuscular HGB Conc 33.1 g/dL (31.6-35.5); Mean Corpuscular Hemoglobin 32.8 pg (28.0-33.3); Mean Platelet Volume 10.4 fL (9.4-12.4); Monocytes # 1.2 K/mcL (0.0-1.3); Monocytes % 7.3 %; Platelet Count 111 K/mcL (140-400); Red Blood Count 2.93 M/mcL (4.19-5.50); Red Cell Distribution Width 16.6 % (11.5-14.5); Segmented Neutrophils % 85.9 %
[2018-02-05 16:01] LABS: Calcium 9.7 mg/dL (8.6-10.3); Potassium 4.2 mEq/L (3.5-5.1)
[2018-02-05 16:09] LABS: Platelet Estimate Decreased (Normal)
[2018-02-06 06:31] LABS: Eosinophils # 0.1 K/mcL (0.0-0.6); Eosinophils % 0.8 %; Hematocrit 27.4 % (37.5-50.1); Immature Granulocytes % 0.8 % (0-4); Immature Platelets 2.7 % (1.1-6.1); Lymphocytes # 1.1 K/mcL (0.6-4.6); Lymphocytes % 6.6 %; Mean Corpuscular HGB Conc 32.8 g/dL (31.6-35.5); Mean Corpuscular Hemoglobin 31.8 pg (28.0-33.3); Mean Corpuscular Volume 96.8 fL (83.0-100.0); Mean Platelet Volume 10.4 fL (9.4-12.4); Monocytes # 1.4 K/mcL (0.0-1.3); Monocytes % 8.6 %; Neutrophils # 13.2 K/mcL (1.6-8.9); Platelet Count 113 K/mcL (140-400); Red Blood Count 2.83 M/mcL (4.19-5.50); Red Cell Distribution Width 16.7 % (11.5-14.5); Segmented Neutrophils % 83.2 %
[2018-02-06 06:35] LABS: Platelet Estimate Slight Decrease (Normal)
[2018-02-06 06:41] LABS: Calcium 9.8 mg/dL (8.6-10.3); Potassium 4.2 mEq/L (3.5-5.1)
[2018-02-06] MEDS: 0.9 % Sodium Chloride 1,000 ML IVC SCH (08:57)
[2018-02-06] MEDS: Cholecalciferol (D-3) 1,000 UNIT TABLET PO SCH (08:58)
[2018-02-06] MEDS: Vitamin B Complex/Vit C/Vit E 1 EACH TABLET PO SCH (08:58)
[2018-02-06] MEDS: Finasteride 5 MG TABLET PO SCH (08:58)
[2018-02-06] MEDS: DIFLUPREDNATE OP SCH ×4 (08:59→20:51)
--- NOTE | 2018-02-06 09:25 | Palliative Progress Note ---
<Deanna Rogers - Last Filed: 02/06/18 09:19> Date of Encounter: 02/06/18 Time of Encounter: 09:20 - Assessment and plan (1) Goals of care, counseling/discussion Current Visit: Yes Status: Acute Assessment and plan: CODE STATUS: DNR-Comfort Care Patient and his family want him to go to [facility] for hospice care with hopes to transfer today. Kwabena Martell [facility] has continued to work towards achieving this despite challenges communicating with [facility]. Roxicodone for pain, seems to continue to satisfactorily control his pain and w/ o complaints of nausea (zofran available if needed). (2) Pancreatic cancer metastasized to liver Current Visit: Yes Status: Acute Assessment and plan: Liver biopsy (01/23/18) and PET scan (01/25/18) results as discussed in consult note. Pain managed with roxicodone 5mg PRN. (3) Nausea Current Visit: Yes Status: Resolved Assessment and plan: No nausea at this time. Zofran available if needed. (4) Bone metastases Current Visit: Yes Status: Acute Assessment and plan: Right 4th rib and T12 lesions, likely inbound call center representative of early skeletal metastases, noted on PET scan. Pain controlled on roxicodone 5mg PRN. - Time Spent With Patient Total time spent is greater than 50% in coordination of care (as documented) at patient's floor/unit and/or counseling patient: - Subjective Interval history: Patient seen and examined this morning, his fiance is at bedside. He's resting in bed and in no acute distress. He denies chest pain, shortness of breath, nausea, vomiting, fevers, or chills. States he's not having much abdominal pain and has no complaints currently. - Constitutional Vitals: Abnormal lab results WBC 15.9 K/mcL (4.3-11.1) H 02/06/18 05:59 RBC 2.83 M/mcL (4.19-5.50) L 02/06/18 05:59 Hgb 9.0 g/dL (12.9-16.9) L 02/06/18 05:59 Hct 27.4 % (37.5-50.1) L 02/06/18 05:59 RDW 16.7 % (11.5-14.5) H 02/06/18 05:59 Plt Count 113 K/mcL (140-400) L 02/06/18 05:59 Reticulocyte # 0.14 M/mcL (0.05-0.10) H 02/01/18 03:45 Neutrophils # 13.2 K/mcL (1.6-8.9) H 02/06/18 05:59 Monocytes # 1.4 K/mcL (0.0-1.3) H 02/06/18 05:59 Reactive Lymphocytes Present (Not Present) A 01/30/18 20:15 Toxic Granulation Present (Not Present) A 02/02/18 04:11 Platelet Estimate Slight Decrease (Normal) L 02/06/18 05:59 Hypochromasia Present (Not Present) A 02/02/18 04:11 Macrocytosis Present (Not Present) A 02/02/18 04:11 Percent Retic 5.0 % (1.6-2.8) H 02/01/18 03:45 Retic Hgb Equivalent 38.9 pg (28.61-36.33) H 02/01/18 03:45 PT 15.6 Seconds (9.4-12.1) H 01/31/18 04:23 Carbon Dioxide 22 mEq/L (23-29) L 02/06/18 05:59 BUN 41 mg/dL (8-23) H 02/06/18 05:59 Creatinine 2.42 mg/dL (0.70-1.30) H 02/06/18 05:59 Est GFR ( Amer) 31 (> 60) L 02/06/18 05:59 Est GFR (Non-Af Amer) 26 (> 60) L 02/06/18 05:59 Glucose 122 mg/dL (70-105) H 02/06/18 05:59 Iron 56 mcg/dL (65-175) L 02/01/18 03:45 Transferrin 195 mg/dL (203-362) L 02/01/18 03:45 Ferritin 762 ng/mL (20-250) H 02/01/18 03:45 Total Bilirubin 4.1 mg/dL (0.3-1.0) H 02/02/18 04:11 Direct Bilirubin 2.3 mg/dL (0.0-0.2) H 02/02/18 04:11 Indirect Bilirubin 1.8 mg/dL (0.0-1.2) H 02/02/18 04:11 AST 67 Units/L (13-39) H 02/02/18 04:11 Alkaline Phosphatase 262 Units/L (34-104) H 02/02/18 04:11 Serum Total Protein 5.9 g/dL (6.4-8.9) L 02/02/18 04:11 Albumin 3.1 g/dL (3.5-5.7) L 02/02/18 04:11 Urine Clarity Cloudy (Clear) A 02/02/18 12:30 Urine Protein 30 mg/dL (Neg-Trace) H 02/02/18 12:30 Urine Urobilinogen 2.0 mg/dL (Normal) H 02/02/18 12:30 Urine Microscopic RBC 3-5 per hpf (0-3) H 02/02/18 12:30 Ur Squamous Epith Cells Moderate per lpf (None-Few) H 02/02/18 12:30 Amorphous Sediment Moderate (Few) H 02/02/18 12:30 Granular Casts Few per lpf (None Seen) H 02/02/18 12:30 General appearance: Present: no acute distress Exam: somnolent - Head Head exam: Present: atraumatic, normal inspection, normocephalic - Respiratory Respiratory exam: Present: CTAB. Absent: rales, rhonchi, wheezes - Cardiovascular Cardiovascular exam: Present: RRR, +S1, +S2 - GI/Abdominal GI/Abdominal exam: Present: hypoactive bowel sounds, soft. Absent: distended - Neurological Exam Additional comments: somnolent, arouses to voice, follows commands, moves all extremities spontaneously, answers questions appropriately - Skin Skin exam: Present: dry, intact, warm Palliative Quality Palliative Quality: Screen for Code Status: Yes, Screen for Goals of Care: Yes, Screen for Pain: Yes, Screen for Nausea/Vomitting: Yes Code Status: 01/29/18 18:48 Resuscitation Status: Active [RES] Routine Comment: Resuscitation Status: Full Code Resuscitation Status: Active [RES] Routine Comment: Resuscitation Status: DNR-Comfort Care - Labs CBC & Chem 7: 02/06/18 05:59 02/06/18 05:59 Labs: Laboratory Results - last 24 hr 02/05/18 02/05/18 02/06/18 14:48 14:48 05:59 WBC 16.3 H 15.9 H RBC 2.93 L 2.83 L Hgb 9.6 L 9.0 L Hct 29.0 L 27.4 L MCV 99.0 96.8 MCH 32.8 31.8 MCHC 33.1 32.8 RDW 16.6 H 16.7 H Plt Count 111 L 113 L MPV 10.4 10.4 Immature Gran % 0.7 0.8 Seg Neutrophils % 85.9 83.2 Lymphocytes % 5.4 6.6 Monocytes % 7.3 8.6 Eosinophils % 0.6 0.8 Basophils % 0.1 0.0 Neutrophils # 14.0 H 13.2 H Lymphocytes # 0.9 1.1 Monocytes # 1.2 1.4 H Eosinophils # 0.1 0.1 Basophils # 0.0 0.0 Nucleated RBCs/100 WBC TNP Platelet Estimate Decreased L Slight Decrease L Immature Plt Fraction 2.7 Sodium 137 Potassium 4.2 Chloride 105 Carbon Dioxide 22 L BUN 36 H Creatinine 2.21 H Est GFR ( Amer) 34 L Est GFR (Non-Af Amer) 28 L BUN/Creatinine Ratio 16 Glucose 161 H Calculated Osmolality 296 Calcium 9.7 02/06/18 05:59 WBC RBC Hgb Hct MCV MCH MCHC RDW Plt Count MPV Immature Gran % Seg Neutrophils % Lymphocytes % Monocytes % Eosinophils % Basophils % Neutrophils # Lymphocytes # Monocytes # Eosinophils # Basophils # Nucleated RBCs/100 WBC Platelet Estimate Immature Plt Fraction Sodium 138 Potassium 4.2 Chloride 106 Carbon Dioxide 22 L BUN 41 H Creatinine 2.42 H Est GFR ( Amer) 31 L Est GFR (Non-Af Amer) 26 L BUN/Creatinine Ratio 17 Glucose 122 H Calculated Osmolality 297 Calcium 9.8 - ABG Interpretation ABG results: PT/INR, D-dimer PT 15.6 Seconds (9.4-12.1) H 01/31/18 04:23 Consult Discharge Plan - Plan Referrals: Rico Reno MD [Family Provider] - <Gio Sanchez - Last Filed: 02/06/18 12:35> Date of Encounter: 02/06/18 - Time Spent With Patient Total time spent is greater than 50% in coordination of care (as documented) at patient's floor/unit and/or counseling patient: - Constitutional Vitals: Abnormal lab results WBC 15.9 K/mcL (4.3-11.1) H 02/06/18 05:59 RBC 2.83 M/mcL (4.19-5.50) L 02/06/18 05:59 Hgb 9.0 g/dL (12.9-16.9) L 02/06/18 05:59 Hct 27.4 % (37.5-50.1) L 02/06/18 05:59 RDW 16.7 % (11.5-14.5) H 02/06/18 05:59 Plt Count 113 K/mcL (140-400) L 02/06/18 05:59 Reticulocyte # 0.14 M/mcL (0.05-0.10) H 02/01/18 03:45 Neutrophils # 13.2 K/mcL (1.6-8.9) H 02/06/18 05:59 Monocytes # 1.4 K/mcL (0.0-1.3) H 02/06/18 05:59 Reactive Lymphocytes Present (Not Present) A 01/30/18 20:15 Toxic Granulation Present (Not Present) A 02/02/18 04:11 Platelet Estimate Slight Decrease (Normal) L 02/06/18 05:59 Hypochromasia Present (Not Present) A 02/02/18 04:11 Macrocytosis Present (Not Present) A 02/02/18 04:11 Percent Retic 5.0 % (1.6-2.8) H 02/01/18 03:45 Retic Hgb Equivalent 38.9 pg (28.61-36.33) H 02/01/18 03:45 PT 15.6 Seconds (9.4-12.1) H 01/31/18 04:23 Carbon Dioxide 22 mEq/L (23-29) L 02/06/18 05:59 BUN 41 mg/dL (8-23) H 02/06/18 05:59 Creatinine 2.42 mg/dL (0.70-1.30) H 02/06/18 05:59 Est GFR ( Amer) 31 (> 60) L 02/06/18 05:59 Est GFR (Non-Af Amer) 26 (> 60) L 02/06/18 05:59 Glucose 122 mg/dL (70-105) H 02/06/18 05:59 Iron 56 mcg/dL (65-175) L 02/01/18 03:45 Transferrin 195 mg/dL (203-362) L 02/01/18 03:45 Ferritin 762 ng/mL (20-250) H 02/01/18 03:45 Total Bilirubin 4.1 mg/dL (0.3-1.0) H 02/02/18 04:11 Direct Bilirubin 2.3 mg/dL (0.0-0.2) H 02/02/18 04:11 Indirect Bilirubin 1.8 mg/dL (0.0-1.2) H 02/02/18 04:11 AST 67 Units/L (13-39) H 02/02/18 04:11 Alkaline Phosphatase 262 Units/L (34-104) H 02/02/18 04:11 Serum Total Protein 5.9 g/dL (6.4-8.9) L 02/02/18 04:11 Albumin 3.1 g/dL (3.5-5.7) L 02/02/18 04:11 Urine Clarity Cloudy (Clear) A 02/02/18 12:30 Urine Protein 30 mg/dL (Neg-Trace) H 02/02/18 12:30 Urine Urobilinogen 2.0 mg/dL (Normal) H 02/02/18 12:30 Urine Microscopic RBC 3-5 per hpf (0-3) H 02/02/18 12:30 Ur Squamous Epith Cells Moderate per lpf (None-Few) H 02/02/18 12:30 Amorphous Sediment Moderate (Few) H 02/02/18 12:30 Granular Casts Few per lpf (None Seen) H 02/02/18 12:30 - Attending Attestation I examined this patient and my medical decision-making was reviewed with the Resident Physician. I agree with the documented findings, disposition and treatment plan as described except to the extent set forth below. Palliative Quality Code Status: 01/29/18 18:48 Resuscitation Status: Active [RES] Routine Comment: Resuscitation Status: Full Code Resuscitation Status: Active [RES] Routine Comment: Resuscitation Status: DNR-Comfort Care - Labs CBC & Chem 7: 02/06/18 05:59 02/06/18 05:59 Labs: Laboratory Results - last 24 hr 02/05/18 02/05/18 02/06/18 14:48 14:48 05:59 WBC 16.3 H 15.9 H RBC 2.93 L 2.83 L Hgb 9.6 L 9.0 L Hct 29.0 L 27.4 L MCV 99.0 96.8 MCH 32.8 31.8 MCHC 33.1 32.8 RDW 16.6 H 16.7 H Plt Count 111 L 113 L MPV 10.4 10.4 Immature Gran % 0.7 0.8 Seg Neutrophils % 85.9 83.2 Lymphocytes % 5.4 6.6 Monocytes % 7.3 8.6 Eosinophils % 0.6 0.8 Basophils % 0.1 0.0 Neutrophils # 14.0 H 13.2 H Lymphocytes # 0.9 1.1 Monocytes # 1.2 1.4 H Eosinophils # 0.1 0.1 Basophils # 0.0 0.0 Nucleated RBCs/100 WBC TNP Platelet Estimate Decreased L Slight Decrease L Immature Plt Fraction 2.7 Sodium 137 Potassium 4.2 Chloride 105 Carbon Dioxide 22 L BUN 36 H Creatinine 2.21 H Est GFR ( Amer) 34 L Est GFR (Non-Af Amer) 28 L BUN/Creatinine Ratio 16 Glucose 161 H Calculated Osmolality 296 Calcium 9.7 02/06/18 05:59 WBC RBC Hgb Hct MCV MCH MCHC RDW Plt Count MPV Immature Gran % Seg Neutrophils % Lymphocytes % Monocytes % Eosinophils % Basophils % Neutrophils # Lymphocytes # Monocytes # Eosinophils # Basophils # Nucleated RBCs/100 WBC Platelet Estimate Immature Plt Fraction Sodium 138 Potassium 4.2 Chloride 106 Carbon Dioxide 22 L BUN 41 H Creatinine 2.42 H Est GFR ( Amer) 31 L Est GFR (Non-Af Amer) 26 L BUN/Creatinine Ratio 17 Glucose 122 H Calculated Osmolality 297 Calcium 9.8 - ABG Interpretation ABG results: PT/INR, D-dimer PT 15.6 Seconds (9.4-12.1) H 01/31/18 04:23
--- NOTE | 2018-02-06 18:12 | Internal Med Progress Note ---
Date of Encounter: 02/06/18 Time of Encounter: 11:00 - Assessment and plan (1) Pancreatic cancer metastasized to liver Current Visit: Yes Status: Acute Assessment and plan: Per PET scan Oncology consultation is recommending hospice/palliative care Palliative care consulted-discuss options -patient is a DNR CC he will contact hospice at the [facility] no beds -awaiting bed placement [facility] Cont with present pain medication roxicodone 5mg -seems to control pain (2) Acute kidney injury Current Visit: Yes Status: Acute Assessment and plan: Originally presented with a creatinine of 2.59 patient did receive IV fluids - he did have some swelling resumed HCTZ creatinine increased stopped HCTZ resume gentle fluids -we will continue to monitor Renal ultrasound: IMPRESSION: Simple bilateral renal cysts. Avoid nephrotoxins consult nephrology as needed Monitor I/O avoid nephrotoxins Will cont with IVF for now Monitor (3) Liver metastases Current Visit: Yes Status: Acute Assessment and plan: Oncology consulted-according to note dated 01/30/18-imaging and bx findings consistent with metastatic malignancy likely pancreatic primary. -Recommending palliative consult as well as hospice care Liver enzymes elevated (4) Confusion Current Visit: Yes Status: Resolved Assessment and plan: resolved- CT of head was unremarkable Patient is more awake and follows simple commands (5) Lactic acidosis Current Visit: Yes Status: Acute Assessment and plan: Possibly due to decreased clearance by the liver due to liver disease-down 0.8- resolved Continue to monitor Lactate 1.7 / (6) Generalized weakness Current Visit: Yes Status: Acute Assessment and plan: PT/OT eval when stable (7) On esomeprazole prophylaxis Current Visit: Yes Status: Acute Assessment and plan: continue Prilosec BID (8) Anemia Current Visit: Yes Status: Acute Assessment and plan: Patient with acute anemia, presented with hemoglobin of 7 -he was given 2 units PRBCs baseline Hb is 8.0 is has been stable awaiting todays' results No s/sx of active bleeding Cause of anemia is currently unknown awaiting occult stool Suspect acute on chronic, nutritional deficiency, chronic GI blood loss- no active bleeding noted at this time Conservative measures at this time no EGD per patient/family-continue to monitor H&H Qualifiers: Anemia type: unspecified type Qualified Code(s): D64.9 - Anemia, unspecified (9) Bone metastases Current Visit: Yes Status: Acute Assessment and plan: as above continue with pain medication oxycodone 5mg q 4h (10) Leukocytosis Current Visit: Yes Status: Acute Assessment and plan: 1 patient has had a low-grade temperature 99-100 White up to 16 waiting for today results Urine appears to be clean Chest x-ray with no acute process Pending blood cultures Suspect related to malignancy will cont to monitor Qualifiers: Leukocytosis type: unspecified Qualified Code(s): D72.829 - Elevated white blood cell count, unspecified (11) DVT prophylaxis Current Visit: Yes Status: Acute Assessment and plan: SCds-acute anemia of unknown source - Time Spent With Patient Total time spent is greater than 50% in coordination of care (as documented) at patient's floor/unit and/or counseling patient: - Subjective Interval history: Patient seen and examined at bedside, no pain or discomfort at this time. Family wants pt to go to [facility] for Hospice- spoke with Kwabena LUND- No bed available will attempt to place in [facility] - Constitutional Vitals: Temp Pulse Resp BP Pulse Ox 98.9 F 102 16 144/92 95 02/06/18 15:11 02/06/18 15:11 02/06/18 15:11 02/06/18 15:11 02/06/18 15:11 General appearance: Present: A&O X 3, no acute distress - Head Head exam: Present: atraumatic, normocephalic - Eye Eye exam: Present: PERRL, conjuntiva pink, sclera anicteric Pupils: Present: PERRL - Neck Neck exam general surgery: Present: supple, trachea midline. Absent: lymphadenopathy - Respiratory Respiratory exam: Present: CTAB. Absent: accessory muscle use, rales, rhonchi, wheezes - Cardiovascular Cardiovascular exam: Present: RRR, +S1, +S2. Absent: diastolic murmur, gallop, rubs, systolic murmur - GI/Abdominal GI/Abdominal exam: Present: normal bowel sounds, soft, no peritoneal signs. Absent: distended, tenderness - Extremities Exam Extremities exam: Present: warm, radial pulses palpable and symmetrical. Absent : calf tenderness, cyanotic, pedal edema - Neurological Exam Neurological exam: Present: CN II-XII intact, oriented X3, no focal deficits. Absent: pronater drift, facial droop, speech deficit - Skin Skin exam: Present: dry, intact Internal Medicine: Result - Labs CBC & Chem 7: 02/06/18 05:59 02/06/18 05:59 Labs: Short CBC 02/06/18 Range/Units 05:59 WBC 15.9 H (4.3-11.1) K/mcL Hgb 9.0 L (12.9-16.9) g/dL Hct 27.4 L (37.5-50.1) % Plt Count 113 L (140-400) K/mcL Neutrophils # 13.2 H (1.6-8.9) K/mcL BMP 02/06/18 05:59 Sodium 138 Potassium 4.2 Chloride 106 Carbon Dioxide 22 L BUN 41 H Creatinine 2.42 H Glucose 122 H Calcium 9.8 - ABG Interpretation ABG results: PT/INR, D-dimer PT 15.6 Seconds (9.4-12.1) H 01/31/18 04:23 - VTE Documentation of Mechanical Device: Intermittent pneumatic compression device Consult Discharge Plan - Plan Referrals: Rico Reno MD [Family Provider] -
[2018-02-07] MEDS: 0.9 % Sodium Chloride 1,000 ML IVC SCH ×2 (04:43→21:40)
[2018-02-07 06:55] LABS: Hematocrit 28.1 % (37.5-50.1); Hemoglobin 8.9 g/dL (12.9-16.9); Mean Corpuscular HGB Conc 31.7 g/dL (31.6-35.5); Mean Corpuscular Hemoglobin 31.1 pg (28.0-33.3); Mean Corpuscular Volume 98.3 fL (83.0-100.0); Mean Platelet Volume 10.4 fL (9.4-12.4); Platelet Count 101 K/mcL (140-400); Red Blood Count 2.86 M/mcL (4.19-5.50); Red Cell Distribution Width 16.5 % (11.5-14.5)
[2018-02-07 07:16] LABS: Calcium 9.7 mg/dL (8.6-10.3)
[2018-02-07 08:55] LABS: Platelet Estimate Decreased (Normal)
[2018-02-07] MEDS: Finasteride 5 MG TABLET PO SCH (09:08)
[2018-02-07] MEDS: Vitamin B Complex/Vit C/Vit E 1 EACH TABLET PO SCH (09:08)
[2018-02-07] MEDS: *HR* OxyCODONE Immed Rel 5 MG TABLET PO PRN ×3 (09:09→21:33)
[2018-02-07] MEDS: Cholecalciferol (D-3) 1,000 UNIT TABLET PO SCH (09:09)
--- NOTE | 2018-02-07 09:10 | Palliative Progress Note ---
Date of Encounter: 02/07/18 Time of Encounter: 08:35 - Assessment and plan (1) Goals of care, counseling/discussion Current Visit: Yes Status: Acute (2) Pancreatic cancer metastasized to liver Current Visit: Yes Status: Acute (3) Nausea Current Visit: Yes Status: Resolved (4) Bone metastases Current Visit: Yes Status: Acute - Time Spent With Patient Total time spent is greater than 50% in coordination of care (as documented) at patient's floor/unit and/or counseling patient: - Subjective Interval history: Patient seen and examined this morning, CRYSTAL FINISHER at bedside assisting patient with his breakfast. He doesn't appear to be in acute distress, however does seem somewhat uncomfortable. He denies chest pain, shortness of breath, nausea, vomiting, fevers, or chills. States he's having some abdominal pain and I reminded him that he has pain medicine available; patient requesting pain medicine. Otherwise, no other stated complaints. - Constitutional Vitals: Abnormal lab results WBC 16.2 K/mcL (4.3-11.1) H 02/07/18 05:18 RBC 2.86 M/mcL (4.19-5.50) L 02/07/18 05:18 Hgb 8.9 g/dL (12.9-16.9) L 02/07/18 05:18 Hct 28.1 % (37.5-50.1) L 02/07/18 05:18 RDW 16.5 % (11.5-14.5) H 02/07/18 05:18 Plt Count 101 K/mcL (140-400) L 02/07/18 05:18 Reticulocyte # 0.14 M/mcL (0.05-0.10) H 02/01/18 03:45 Neutrophils # 13.2 K/mcL (1.6-8.9) H 02/06/18 05:59 Monocytes # 1.4 K/mcL (0.0-1.3) H 02/06/18 05:59 Reactive Lymphocytes Present (Not Present) A 01/30/18 20:15 Toxic Granulation Present (Not Present) A 02/02/18 04:11 Platelet Estimate Slight Decrease (Normal) L 02/06/18 05:59 Hypochromasia Present (Not Present) A 02/02/18 04:11 Macrocytosis Present (Not Present) A 02/02/18 04:11 Percent Retic 5.0 % (1.6-2.8) H 02/01/18 03:45 Retic Hgb Equivalent 38.9 pg (28.61-36.33) H 02/01/18 03:45 PT 15.6 Seconds (9.4-12.1) H 01/31/18 04:23 BUN 44 mg/dL (8-23) H 02/07/18 05:18 Creatinine 2.32 mg/dL (0.70-1.30) H 02/07/18 05:18 Est GFR ( Amer) 33 (> 60) L 02/07/18 05:18 Est GFR (Non-Af Amer) 27 (> 60) L 02/07/18 05:18 Calculated Osmolality 303 (280-300) H 02/07/18 05:18 Iron 56 mcg/dL (65-175) L 02/01/18 03:45 Transferrin 195 mg/dL (203-362) L 02/01/18 03:45 Ferritin 762 ng/mL (20-250) H 02/01/18 03:45 Total Bilirubin 4.1 mg/dL (0.3-1.0) H 02/02/18 04:11 Direct Bilirubin 2.3 mg/dL (0.0-0.2) H 02/02/18 04:11 Indirect Bilirubin 1.8 mg/dL (0.0-1.2) H 02/02/18 04:11 AST 67 Units/L (13-39) H 02/02/18 04:11 Alkaline Phosphatase 262 Units/L (34-104) H 02/02/18 04:11 Serum Total Protein 5.9 g/dL (6.4-8.9) L 02/02/18 04:11 Albumin 3.1 g/dL (3.5-5.7) L 02/02/18 04:11 Urine Clarity Cloudy (Clear) A 02/02/18 12:30 Urine Protein 30 mg/dL (Neg-Trace) H 02/02/18 12:30 Urine Urobilinogen 2.0 mg/dL (Normal) H 02/02/18 12:30 Urine Microscopic RBC 3-5 per hpf (0-3) H 02/02/18 12:30 Ur Squamous Epith Cells Moderate per lpf (None-Few) H 02/02/18 12:30 Amorphous Sediment Moderate (Few) H 02/02/18 12:30 Granular Casts Few per lpf (None Seen) H 02/02/18 12:30 Palliative Quality Palliative Quality: Screen for Code Status: Yes, Screen for Goals of Care: Yes, Screen for Pain: Yes, Screen for Nausea/Vomitting: Yes Code Status: 01/29/18 18:48 Resuscitation Status: Active [RES] Routine Comment: Resuscitation Status: Full Code Resuscitation Status: Active [RES] Routine Comment: Resuscitation Status: DNR-Comfort Care - Labs CBC & Chem 7: 02/07/18 05:18 02/07/18 05:18 Labs: Laboratory Results - last 24 hr 02/07/18 02/07/18 05:18 05:18 WBC 16.2 H RBC 2.86 L Hgb 8.9 L Hct 28.1 L MCV 98.3 MCH 31.1 MCHC 31.7 RDW 16.5 H Plt Count 101 L MPV 10.4 Nucleated RBCs/100 WBC TNP Sodium 141 Potassium 4.0 Chloride 107 Carbon Dioxide 25 BUN 44 H Creatinine 2.32 H Est GFR ( Amer) 33 L Est GFR (Non-Af Amer) 27 L BUN/Creatinine Ratio 19 Glucose 102 Calculated Osmolality 303 H Calcium 9.7 - ABG Interpretation ABG results: PT/INR, D-dimer PT 15.6 Seconds (9.4-12.1) H 01/31/18 04:23 Consult Discharge Plan - Plan Referrals: Rico Reno MD [Family Provider] -
[2018-02-07] MEDS: DIFLUPREDNATE OP SCH ×4 (09:15→21:33)
[2018-02-07 09:33] LABS: Lymphocytes # 0.3 K/mcL (0.6-4.6); Monocytes # 1.3 K/mcL (0.0-1.3); Neutrophils # 14.6 K/mcL (1.6-8.9)
[2018-02-07 09:34] LABS: Anisocytosis 1+ (Not Present)
[2018-02-07 09:35] LABS: Polychromasia 1+ (Not Present)
[2018-02-07 09:36] LABS: Poikilocytosis 1+ (Not Present)
--- NOTE | 2018-02-07 10:44 | Event Note ---
<Deanna Rogers - Last Filed: 02/07/18 10:38> Date of Encounter: 02/07/18 Time of Encounter: 08:35 Patient seen and examined this morning, LOSS CONTROL ENGINEER at bedside assisting patient with his breakfast. He doesn't appear to be in acute distress, however does seem somewhat uncomfortable. He denies chest pain, shortness of breath, nausea, vomiting, fevers, or chills. States he's having some abdominal pain and I reminded him that he has pain medicine available; patient requesting pain medicine. Otherwise, no other stated complaints. He is alert and oriented x3, answers questions appropriately, breathing comfortably, moves all extremities spontaneously. Patient was unable to get placement at [facility]. Currently, social work is trying to get patient placed at [facility]. <Gio Sanchez - Last Filed: 02/07/18 11:08> Date of Encounter: 02/07/18 agree with the above
--- NOTE | 2018-02-07 11:21 | Internal Med Progress Note ---
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 Current Visit: Yes Status: Acute Assessment and plan: Originally presented with generalized weakness and abdominal pain Found to have pancreatic cancer with metastasis per PET scan Oncology seeing in consultation, recommending hospice/palliative care Patient and family and ingredients with plan Awaiting approval for placement at [facility] Palliative care setting in consultation-patient is DNR CC Continue with current pain medication regimen (2) Acute kidney injury Current Visit: Yes Status: Acute Assessment and plan: Presented with elevated creatinine, etiology unclear Was on HCTZ, serum creatinine increased, HCTZ stopped Continue gentle IVF Avoid nephrotoxins And monitor renal function daily Renal ultrasound: IMPRESSION: Simple bilateral renal cysts. (3) Liver metastases Current Visit: Yes Status: Acute Assessment and plan: imaging and biopsy findings consistent with metastatic malignancy Believed to have primary pancreatic primary Palliative and oncology following (4) Confusion Current Visit: Yes Status: Resolved Assessment and plan: resolved (5) Generalized weakness Current Visit: Yes Status: Acute Assessment and plan: continue withPT/OT eval when stable (6) Anemia Current Visit: Yes Status: Acute Assessment and plan: Patient with acute anemia, presented with hemoglobin of 7 Received 2 units PRBCs baseline Hb is 8.0 and he has been stable since admission. Today's hemoglobin 8.9 No S/SX of active bleeding Suspect acute on chronic, nutritional deficiency, chronic GI blood loss- no active bleeding noted at this time Conservative measures at this time no EGD per patient/family-continue to monitor H&H Qualifiers: Anemia type: unspecified type Qualified Code(s): D64.9 - Anemia, unspecified (7) Bone metastases Current Visit: Yes Status: Acute Assessment and plan: as above (8) Leukocytosis Current Visit: Yes Status: Acute Assessment and plan: Leukocytosis, WBC 16.2 today, 02/07/18, stable since 02/03/18 Low-grade temperature low-grade temperature 99-100 No obvious infective source, Urine appears to be clean Chest x-ray with no acute process Alters pending Likely related to malignancy will cont to monitor daily labs while inpatient Qualifiers: Leukocytosis type: unspecified Qualified Code(s): D72.829 - Elevated white blood cell count, unspecified (9) DVT prophylaxis Current Visit: Yes Status: Acute Assessment and plan: SCds - Time Spent With Patient Total time spent is greater than 50% in coordination of care (as documented) at patient's floor/unit and/or counseling patient: - Subjective Interval history: patient seen and examined at bedside today. no acute changes overnight. Complains of abdominal pain however improving after receiving pain medication - Constitutional Vitals: Temp Pulse Resp BP Pulse Ox 98.8 F 96 15 129/85 97 02/07/18 11:14 02/07/18 11:14 02/07/18 11:14 02/07/18 11:14 02/07/18 11:14 General appearance: Present: A&O X 3, no acute distress - Head Head exam: Present: atraumatic, normocephalic - Eye Eye exam: Present: PERRL, conjuntiva pink, sclera anicteric Pupils: Present: PERRL - Neck Neck exam general surgery: Present: supple, trachea midline. Absent: lymphadenopathy - Respiratory Respiratory exam: Present: CTAB. Absent: accessory muscle use, rales, rhonchi, wheezes - Cardiovascular Cardiovascular exam: Present: RRR, +S1, +S2. Absent: diastolic murmur, gallop, rubs, systolic murmur - GI/Abdominal GI/Abdominal exam: Present: normal bowel sounds, soft, no peritoneal signs. Absent: distended, tenderness - Extremities Exam Extremities exam: Present: warm, radial pulses palpable and symmetrical. Absent : calf tenderness, cyanotic, pedal edema - Neurological Exam Neurological exam: Present: CN II-XII intact, oriented X3, no focal deficits. Absent: pronater drift, facial droop, speech deficit - Skin Skin exam: Present: dry, intact Internal Medicine: Result - Labs CBC & Chem 7: 02/07/18 05:18 02/07/18 05:18 Labs: Short CBC 02/07/18 Range/Units 05:18 WBC 16.2 H (4.3-11.1) K/mcL Hgb 8.9 L (12.9-16.9) g/dL Hct 28.1 L (37.5-50.1) % Plt Count 101 L (140-400) K/mcL Neutrophils # 14.6 H (1.6-8.9) K/mcL BMP 02/07/18 05:18 Sodium 141 Potassium 4.0 Chloride 107 Carbon Dioxide 25 BUN 44 H Creatinine 2.32 H Glucose 102 Calcium 9.7 - ABG Interpretation ABG results: PT/INR, D-dimer PT 15.6 Seconds (9.4-12.1) H 01/31/18 04:23 - VTE Documentation of Mechanical Device: Intermittent pneumatic compression device Consult Discharge Plan - Plan Referrals: Rico Reno MD [Family Provider] -
[2018-02-08 05:32] LABS: Basophils # 0.1 K/mcL (0.0-0.2); Basophils % 0.4 %; Eosinophils # 0.2 K/mcL (0.0-0.6); Eosinophils % 1.1 %; Hematocrit 31.9 % (37.5-50.1); Hemoglobin 10.3 g/dL (12.9-16.9); Immature Granulocytes % 0.8 % (0-4); Lymphocytes # 0.8 K/mcL (0.6-4.6); Lymphocytes % 5.3 %; Mean Corpuscular HGB Conc 32.3 g/dL (31.6-35.5); Mean Corpuscular Hemoglobin 32.7 pg (28.0-33.3); Mean Corpuscular Volume 101.3 fL (83.0-100.0); Mean Platelet Volume 10.8 fL (9.4-12.4); Monocytes # 1.3 K/mcL (0.0-1.3); Monocytes % 8.2 %; Neutrophils # 13.3 K/mcL (1.6-8.9); Platelet Count 105 K/mcL (140-400); Red Blood Count 3.15 M/mcL (4.19-5.50); Red Cell Distribution Width 17.1 % (11.5-14.5); Segmented Neutrophils % 84.2 %
[2018-02-08 05:46] LABS: Calcium 9.9 mg/dL (8.6-10.3); Potassium 4.2 mEq/L (3.5-5.1)
[2018-02-08 05:48] LABS: Anisocytosis 1+ (Not Present); Macrocytosis Present (Not Present); Platelet Estimate Decreased (Normal)
--- NOTE | 2018-02-08 07:33 | Palliative Progress Note ---
Date of Encounter: 02/08/18 Time of Encounter: 07:30 - Assessment and plan (1) Constipation by delayed colonic transit Current Visit: Yes Status: Acute Assessment and plan: No bowel movement documented since the third, patient states that this is not uncommon for him but we will start senna nonetheless. It is okay with this. (2) Pancreatic cancer metastasized to liver Current Visit: Yes Status: Acute Assessment and plan: No further treatment is available per (3) Goals of care, counseling/discussion Current Visit: Yes Status: Acute Assessment and plan: DNR comfort care. [facility]. She will work is working on this actively. (4) Nausea Current Visit: Yes Status: Resolved Assessment and plan: No further nausea noted. Would recommend backing down on the Reglan at this point in time. - Time Spent With Patient Total time spent is greater than 50% in coordination of care (as documented) at patient's floor/unit and/or counseling patient: - Subjective Interval history: The patient has no complaint of this morning states he is doing okay. He asked about bowel movements he states he has not had one in a while. He states it is very common for him to go many days between bowel movements. Last noted bowel movement in the hospital was on the third. He is not having any abdominal pain and he is passing gas I discussed starting him on some - Constitutional Vitals: Abnormal lab results WBC 15.8 K/mcL (4.3-11.1) H 02/08/18 04:20 RBC 3.15 M/mcL (4.19-5.50) L 02/08/18 04:20 Hgb 10.3 g/dL (12.9-16.9) L 02/08/18 04:20 Hct 31.9 % (37.5-50.1) L 02/08/18 04:20 MCV 101.3 fL (83.0-100.0) H 02/08/18 04:20 RDW 17.1 % (11.5-14.5) H 02/08/18 04:20 Plt Count 105 K/mcL (140-400) L 02/08/18 04:20 Reticulocyte # 0.14 M/mcL (0.05-0.10) H 02/01/18 03:45 Neutrophils # 13.3 K/mcL (1.6-8.9) H 02/08/18 04:20 Reactive Lymphocytes Present (Not Present) A 01/30/18 20:15 Toxic Granulation Present (Not Present) A 02/02/18 04:11 Platelet Estimate Decreased (Normal) L 02/08/18 04:20 Polychromasia 1+ (Not Present) A 02/07/18 05:18 Hypochromasia Present (Not Present) A 02/02/18 04:11 Poikilocytosis 1+ (Not Present) A 02/07/18 05:18 Anisocytosis 1+ (Not Present) A 02/08/18 04:20 Macrocytosis Present (Not Present) A 02/08/18 04:20 Percent Retic 5.0 % (1.6-2.8) H 02/01/18 03:45 Retic Hgb Equivalent 38.9 pg (28.61-36.33) H 02/01/18 03:45 PT 15.6 Seconds (9.4-12.1) H 01/31/18 04:23 BUN 46 mg/dL (8-23) H 02/08/18 04:20 Creatinine 2.59 mg/dL (0.70-1.30) H 02/08/18 04:20 Est GFR ( Amer) 29 (> 60) L 02/08/18 04:20 Est GFR (Non-Af Amer) 24 (> 60) L 02/08/18 04:20 Glucose 110 mg/dL (70-105) H 02/08/18 04:20 Calculated Osmolality 305 (280-300) H 02/08/18 04:20 Iron 56 mcg/dL (65-175) L 02/01/18 03:45 Transferrin 195 mg/dL (203-362) L 02/01/18 03:45 Ferritin 762 ng/mL (20-250) H 02/01/18 03:45 Total Bilirubin 4.1 mg/dL (0.3-1.0) H 02/02/18 04:11 Direct Bilirubin 2.3 mg/dL (0.0-0.2) H 02/02/18 04:11 Indirect Bilirubin 1.8 mg/dL (0.0-1.2) H 02/02/18 04:11 AST 67 Units/L (13-39) H 02/02/18 04:11 Alkaline Phosphatase 262 Units/L (34-104) H 02/02/18 04:11 Serum Total Protein 5.9 g/dL (6.4-8.9) L 02/02/18 04:11 Albumin 3.1 g/dL (3.5-5.7) L 02/02/18 04:11 Urine Clarity Cloudy (Clear) A 02/02/18 12:30 Urine Protein 30 mg/dL (Neg-Trace) H 02/02/18 12:30 Urine Urobilinogen 2.0 mg/dL (Normal) H 02/02/18 12:30 Urine Microscopic RBC 3-5 per hpf (0-3) H 02/02/18 12:30 Ur Squamous Epith Cells Moderate per lpf (None-Few) H 02/02/18 12:30 Amorphous Sediment Moderate (Few) H 02/02/18 12:30 Granular Casts Few per lpf (None Seen) H 02/02/18 12:30 General appearance: Present: no acute distress - Respiratory Respiratory exam: Present: CTAB - Cardiovascular Cardiovascular exam: Present: RRR - GI/Abdominal GI/Abdominal exam: Present: normal bowel sounds, soft. Absent: tenderness - Psychiatric Psychiatric exam: Present: normal affect, normal mood. Absent: agitated, anxious - Skin Skin exam: Present: dry, warm Palliative Quality Palliative Quality: Screen for Code Status: Yes, Screen for Goals of Care: Yes, Screen for Pain: Yes, Screen for Nausea/Vomitting: Yes Code Status: 01/29/18 18:48 Resuscitation Status: Active [RES] Routine Comment: Resuscitation Status: Full Code Resuscitation Status: Active [RES] Routine Comment: Resuscitation Status: DNR-Comfort Care - Labs CBC & Chem 7: 02/08/18 04:20 02/08/18 04:20 Labs: Laboratory Results - last 24 hr 02/07/18 02/08/18 02/08/18 05:18 04:20 04:20 WBC 16.2 H 15.8 H RBC 2.86 L 3.15 L Hgb 8.9 L 10.3 L Hct 28.1 L 31.9 L MCV 98.3 101.3 H MCH 31.1 32.7 MCHC 31.7 32.3 RDW 16.5 H 17.1 H Plt Count 101 L 105 L MPV 10.4 10.8 Immature Gran % 0.8 Seg Neutrophils % 90.0 84.2 Lymphocytes % 2.0 5.3 Monocytes % 8.0 8.2 Eosinophils % Test Not Performed 1.1 Basophils % 0.4 Neutrophils # 14.6 H 13.3 H Lymphocytes # 0.3 L 0.8 Monocytes # 1.3 1.3 Eosinophils # Test Not Performed 0.2 Basophils # 0.1 Nucleated RBCs/100 WBC TNP TNP Platelet Estimate Decreased L Decreased L Immature Plt Fraction 3.0 Polychromasia 1+ A Poikilocytosis 1+ A Anisocytosis 1+ A 1+ A Macrocytosis Present A Sodium 141 Potassium 4.2 Chloride 107 Carbon Dioxide 24 BUN 46 H Creatinine 2.59 H Est GFR ( Amer) 29 L Est GFR (Non-Af Amer) 24 L BUN/Creatinine Ratio 18 Glucose 110 H Calculated Osmolality 305 H Calcium 9.9 - ABG Interpretation ABG results: PT/INR, D-dimer PT 15.6 Seconds (9.4-12.1) H 01/31/18 04:23 Consult Discharge Plan - Plan Referrals: Rico Reno MD [Family Provider] -
[2018-02-08 08:18] VITALS: BP 159/105
[2018-02-08] MEDS: Vitamin B Complex/Vit C/Vit E 1 EACH TABLET PO SCH (08:31)
[2018-02-08] MEDS: Cholecalciferol (D-3) 1,000 UNIT TABLET PO SCH (08:32)
[2018-02-08] MEDS: Finasteride 5 MG TABLET PO SCH (08:33)
[2018-02-08] MEDS: DIFLUPREDNATE OP SCH ×2 (08:48)
[2018-02-08] MEDS ORDERED: Sennosides/Docusate Sodium TABLET PO SCH (09:00)
--- NOTE | 2018-02-08 12:09 | Discharge Summary ---
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 Priority: Primary Status: Acute Assessment and Plan: Originally presented with generalized weakness and abdominal pain Found to have pancreatic cancer with metastasis per PET scan Oncology seeing in consultation, recommending hospice/palliative care Patient and family and ingredients with plan Awaiting approval for placement at [facility] Palliative care setting in consultation-patient is DNR CC Continue with current pain medication regimen (2) Acute kidney injury Priority: Secondary Status: Acute Assessment and Plan: Presented with elevated creatinine, etiology unclear Was on HCTZ, serum creatinine increased, HCTZ stopped Continue gentle IVF Avoid nephrotoxins And monitor renal function daily Renal ultrasound: IMPRESSION: Simple bilateral renal cysts. (3) Liver metastases Priority: Secondary Status: Acute Assessment and Plan: imaging and biopsy findings consistent with metastatic malignancy Believed to have primary pancreatic primary Palliative and oncology following (4) Confusion Priority: Secondary Status: Resolved Assessment and Plan: resolved (5) Generalized weakness Priority: Secondary Status: Acute Assessment and Plan: continue withPT/OT eval when stable (6) Anemia Priority: Secondary Status: Acute Assessment and Plan: Patient with acute anemia, presented with hemoglobin of 7 Received 2 units PRBCs baseline Hb is 8.0 and he has been stable since admission. Today's hemoglobin 8.9 No S/SX of active bleeding Suspect acute on chronic, nutritional deficiency, chronic GI blood loss- no active bleeding noted at this time Conservative measures at this time no EGD per patient/family-continue to monitor H&H Qualifiers: Anemia type: unspecified type Qualified Code(s): D64.9 - Anemia, unspecified (7) Bone metastases Priority: Secondary Status: Acute Assessment and Plan: as above (8) Leukocytosis Priority: Secondary Status: Acute Assessment and Plan: Leukocytosis, WBC 16.2 today, 02/07/18, stable since 02/03/18 Low-grade temperature low-grade temperature 99-100 No obvious infective source, Urine appears to be clean Chest x-ray with no acute process Alters pending Likely related to malignancy will cont to monitor daily labs while inpatient Qualifiers: Leukocytosis type: unspecified Qualified Code(s): D72.829 - Elevated white blood cell count, unspecified (9) DVT prophylaxis Priority: Secondary Status: Acute Hospital course: Mr. Loja is a 88 year old male Please see assessment and plan for hospital course Discharge discussed with: patient, family, nurse, social work, case management - Time Spent with Patient Total time spent providing and/or coordinating discharge services: Less than 30 minutes - Discharge Medications Home Medications: Allopurinol [Zyloprim 100 MG] 100 mg PO DAILY 01/12/18 [History] Difluprednate [Durezol] 5 ml OP DAILY 01/12/18 [History] Ergocalciferol (VITAMIN D2) [Vitamin D] 400 unit PO DAILY 01/12/18 [History] Finasteride [Proscar] 5 mg PO DAILY 01/12/18 [History] Lisinopril [Zestril] 20 mg PO DAILY 01/12/18 [History] Metoclopramide [Reglan] 5 mg PO TID 01/12/18 [History] Pantoprazole Sodium [Protonix] 40 mg PO BID 01/12/18 [History] Pravastatin Sodium [Pravachol] 80 mg PO DAILY 01/12/18 [History] Spironolactone [Aldactone] 25 mg PO DAILY 01/12/18 [History] Tamsulosin HCl [Flomax] 0.4 mg PO DAILY 01/12/18 [History] Vitamin B Complex [B Complex] 1 each PO DAILY 01/12/18 [History] hydroCHLOROthiazide [Hydrochlorothiazide] 50 mg PO DAILY 01/12/18 [History] Allergies/Adverse Reactions: 3 Allergy/AdvReac Type Severity Reaction Status Date / Time No Known Allergies Allergy Verified 01/12/18 11:11 Date of admission: 01/29/18 18:05 Primary care physician: PCP NONE Consults: 01/29/18 18:49 Consult to Department Assistant [CONS] Routine Reason for SW Consult: new cacner diagnosis 01/29/18 18:54 Consult to Occupational Therapy [CONS] Routine Comment: Evaluate, develop and implement POC Reason for Consult: Generalized weakness Does patient have active BEDREST order?: No Is patient medically & hemodynamically stable?: Yes 01/29/18 18:55 Consult to Physical Therapy [CONS] Routine Comment: Evaluate, develop and implement POC Reason for Consult: generalized weakness Does patient have active BEDREST order?: No Is patient medically & hemodynamically stable?: Yes 01/29/18 18:57 Consult to Oncology [CONS] Routine Consulting Provider: [facility] Reason for Consult: s/p liver biopsy. please call in the morning. Call Completed: No 01/30/18 11:33 Consult to Palliative Care [CONS] Routine Comment: Consulting Provider: Palliative [facility] Reason for Consult: Pancreatic CA with liver and bone mets, kindly evaluate for goals of care and code status, thank you. Call Completed: No Discharging clinician: London Lucero Anticipated date of discharge: 02/08/18 - Constitutional Vitals: Temp Pulse Resp BP Pulse Ox 99.0 F 94 16 159/105 95 02/08/18 08:16 02/08/18 08:16 02/08/18 08:16 02/08/18 08:16 02/08/18 08:16 General appearance: Present: A&O X 3, no acute distress Exam: weak and lethargic - Head Head exam: Present: atraumatic, normocephalic - Eye Eye exam: Present: PERRL, conjuntiva pink, sclera anicteric Pupils: Present: PERRL - Neck Neck exam general surgery: Present: supple, trachea midline. Absent: lymphadenopathy - Respiratory Respiratory exam: Present: CTAB. Absent: accessory muscle use, rales, rhonchi, wheezes - Cardiovascular Cardiovascular exam: Present: RRR, +S1, +S2. Absent: diastolic murmur, gallop, rubs, systolic murmur - GI/Abdominal GI/Abdominal exam: Present: normal bowel sounds, soft, no peritoneal signs. Absent: distended, tenderness - Extremities Exam Extremities exam: Present: warm, radial pulses palpable and symmetrical. Absent : calf tenderness, cyanotic, pedal edema - Neurological Exam Neurological exam: Present: CN II-XII intact, oriented X3, no focal deficits. Absent: pronater drift, facial droop, speech deficit - Skin Skin exam: Present: dry, intact - Patient Status Disposition: Transfer SNF Condition: Serious Functional capacity at discharge: independent ambulation Overall status at discharge: patient is not back to baseline - Discharge Instructions Instructions: Anemia (GEN) Follow Up With: Rico Reno MD [Family Provider] - - Diet and Activity Activity: other (activity as tolerated) Diet: advance to your usual diet - VTE Documentation of Mechanical Device: Intermittent pneumatic compression device
--- NOTE | 2018-02-08 12:14 | Physician Discharge Referral ---
ExtendedCare Referral Info Transfer To: [facility] Provider in Charge after Transfer: Wash Barrel Leader Institutional Level of Care: Skilled - Diagnosis (1) Pancreatic cancer metastasized to liver Priority: Primary Status: Acute (2) Acute kidney injury Priority: Secondary Status: Acute (3) Liver metastases Priority: Secondary Status: Acute (4) Confusion Priority: Secondary Status: Resolved (5) Generalized weakness Priority: Secondary Status: Acute (6) Anemia Priority: Secondary Status: Acute (7) Bone metastases Priority: Secondary Status: Acute (8) Leukocytosis Priority: Secondary Status: Acute (9) DVT prophylaxis Priority: Secondary Status: Acute Expected Duration of Placement: Patient to [facility] for hospice Prognosis: Poor Aware of Diagnosis: Patient, Family Aware of Prognosis: Patient, Family - Transfer Medications Home Medications: Allopurinol [Zyloprim 100 MG] 100 mg PO DAILY 01/12/18 [History] Difluprednate [Durezol] 5 ml OP DAILY 01/12/18 [History] Ergocalciferol (VITAMIN D2) [Vitamin D] 400 unit PO DAILY 01/12/18 [History] Finasteride [Proscar] 5 mg PO DAILY 01/12/18 [History] Lisinopril [Zestril] 20 mg PO DAILY 01/12/18 [History] Metoclopramide [Reglan] 5 mg PO TID 01/12/18 [History] Pantoprazole Sodium [Protonix] 40 mg PO BID 01/12/18 [History] Pravastatin Sodium [Pravachol] 80 mg PO DAILY 01/12/18 [History] Spironolactone [Aldactone] 25 mg PO DAILY 01/12/18 [History] Tamsulosin HCl [Flomax] 0.4 mg PO DAILY 01/12/18 [History] Vitamin B Complex [B Complex] 1 each PO DAILY 01/12/18 [History] hydroCHLOROthiazide [Hydrochlorothiazide] 50 mg PO DAILY 01/12/18 [History] Allergies/Adverse Reactions: 3 Allergy/AdvReac Type Severity Reaction Status Date / Time No Known Allergies Allergy Verified 01/12/18 11:11 - Respiratory Orders Smoking Cessation: Smoking cessation has been advised. For more information, call the [place] Tobacco Quit Line at 8-824-PFDY-NOW. - Advance Directives Code Status: DNR-Comfort Care - Mobility Orders Other (Per facility provider) - Diet Orders Regular CERTIFICATION: I certify that the transfer of the above named patient to an Extended Care Facility is necessary for the continuing treatment of the diagnosis listed. The above information is true and accurate reflection of patient's current condition. Confidential - Redisclosure prohibited without a patient's written consent.
== END 2018-02-08 12:17 ==
LOC: 3BNU
PROVIDERS: ADMIT Internal Medicine; ATTEND Internal Medicine